=== PATIENT | male | born 1965 | race African-American/Black ===

== ENCOUNTER 2016-06-28 11:16 | Inpatient (IN) | payer OTHER ==
[~2016-06-28] VITALS: Ht 172.7 cm; Wt 85.5 kg
[2016-06-28] VITALS (11 sets, daily range): BP systolic 77–137; BP diastolic 38–87
[2016-06-28] MEDS ORDERED: DIAZEPAM 10 MG/2 ML DISP.SYRIN. ONE (11:28)
[2016-06-28] MEDS ORDERED: EPINEPHRINE 1 MG/ML VIAL. ONE (11:33)
[2016-06-28] MEDS ORDERED: PROPOFOL 50 ML IV ONE ×2 (11:58→12:24)
[2016-06-28] MEDS ORDERED: MIDAZOLAM HCL/PF 5 MG/5 ML VIAL IV ONE (12:00)
[2016-06-28] MEDS ORDERED: PROPOFOL 100 ML IV PRN (12:00)
[2016-06-28] MEDS ORDERED: IV NORMAL SALINE 1000ML BAG 1,000 ML IV SCH ×2 (12:02)
--- NOTE | 2016-06-28 12:06 | PHYS DOC ---
Adult General Chief Complaint Chief Complaint: NAUSEA/VOMITING/DIARRHA HPI HPI Patient is a 50 year old male who presents with complaint of severe difficulty breathing. Patient states that his symptoms started suddenly this morning and have rapidly progressed. The patient old EMS who arrived and found the patient having difficulty breathing with accompanied vomiting. On arrival, the patient is displaying severe respiratory distress. Patient states that he cannot breathe and feels that there is a blockage in his throat. Patient has history of hypertension and has been on long-term lisinopril therapy. Patient denies any fevers or pain currently. Review of Systems Review of Systems Constitutional: Denies fever or chills [] Eyes: Denies change in visual acuity, redness, or eye pain [] HENT: Throat swelling [] Respiratory: Difficulty breathing [] Cardiovascular: Denies chest pain or edema [] GI: Denies abdominal pain, nausea, vomiting, bloody stools or diarrhea [] : Denies dysuria or hematuria [] Musculoskeletal: Denies back pain or joint pain [] Integument: Denies rash or skin lesions [] Neurologic: Denies headache, focal weakness or sensory changes [] Endocrine: Denies polyuria or polydipsia [] Current Medications Current Medications Current Medications Medications (Trade) Dose Ordered Sig/Sima Start Time Stop Time Status Last Admin Dose Admin Diazepam (Valium) 10 mg STK-MED ONCE 06/28/16 11:28 06/28/16 11:29 DC Epinephrine HCl (Adrenalin) 1 mg STK-MED ONCE 06/28/16 11:33 06/28/16 11:34 DC Midazolam HCl 5 mg 5 mg 1X ONCE 06/28/16 12:00 06/28/16 12:01 DC 06/28/16 11:58 5 MG Propofol 100 ml @ 0 mls/hr CONT PRN 06/28/16 12:00 06/28/16 12:02 5 MLS/HR Sodium Chloride (Iv Sodium Chloride 0.9% 1000ml Bag) 1,000 ml @ 100 mls/hr Q10H 06/28/16 12:02 06/28/16 22:01 Allergies Allergies Allergies Coded Allergies Type Severity Reaction Last Updated Verified metoprolol Allergy Intermediate Unknown 06/28/16 Yes Physical Exam Physical Exam Constitutional: Alert, afebrile, appears in severe respiratory distress. [] HENT: Normocephalic, atraumatic, bilateral external ears normal, severe uvular edema, nose normal. [] Eyes: PERRLA, EOMI, conjunctiva normal, no discharge. [] Neck: Normal range of motion, no tenderness, supple, stridor present. [] Cardiovascular: Tachycardia, regular rhythm, no murmur [] Lungs & Thorax: Prolonged expiratory phase, no wheezes or rales present [] Abdomen: Bowel sounds normal, soft, no tenderness, no masses, no pulsatile masses. [] Skin: Warm, dry, no erythema, no rash. [] Back: No tenderness, no CVA tenderness. [] Extremities: No tenderness, no cyanosis, no clubbing, ROM intact, no edema. [] Neurologic: Alert and oriented X 3, normal motor function, normal sensory function, no focal deficits noted. [] Current Patient Data Vital Signs Vital Signs Date Time Temp Pulse Resp B/P Pulse Ox O2 Delivery O2 Flow Rate FiO2 06/28/16 12:06 132 169/96 100 Ventilator 06/28/16 11:45 19 Lab Values Laboratory Tests Test 06/28/16 11:39 06/28/16 12:02 White Blood Count 7.0x10^3/uL (4.0-11.0) Red Blood Count 4.62x10^6/uL (4.30-5.70) Hemoglobin 14.4g/dL (13.0-17.5) Hematocrit 43.8% (39.0-53.0) Mean Corpuscular Volume 95fL (79-100) Mean Corpuscular Hemoglobin 31pg (25-35) Mean Corpuscular Hemoglobin Concent 33g/dL (31-37) Red Cell Distribution Width 17.1% (11.5-14.5) H Platelet Count 118x10^3/uL (140-400) L Neutrophils (%) (Auto) 59% (31-73) Lymphocytes (%) (Auto) 35% (24-48) Monocytes (%) (Auto) 6% (0-9) Eosinophils (%) (Auto) 0% (0-3) Basophils (%) (Auto) 1% (0-3) Neutrophils # (Auto) 4.2x10^3uL (1.8-7.7) Lymphocytes # (Auto) 2.4x10^3/uL (1.0-4.8) Monocytes # (Auto) 0.4x10^3/uL (0.0-1.1) Eosinophils # (Auto) 0.0x10^3/uL (0.0-0.7) Basophils # (Auto) 0.0x10^3/uL (0.0-0.2) Sodium Level 137mmol/L (136-145) Potassium Level 3.9mmol/L (3.5-5.1) Chloride Level 97mmol/L (98-107) L Carbon Dioxide Level 22mmol/L (21-32) Anion Gap 18 (6-14) H Blood Urea Nitrogen 7mg/dL (8-26) L Creatinine 0.8mg/dL (0.7-1.3) Estimated GFR (Cockcroft-Gault) 102.3 BUN/Creatinine Ratio 9 (6-20) Glucose Level 127mg/dL (70-99) H Calcium Level 9.3mg/dL (8.5-10.1) Total Bilirubin 0.8mg/dL (0.2-1.0) Aspartate Amino Transferase (AST) 67U/L (15-37) H Alanine Aminotransferase (ALT) 29U/L (16-63) Alkaline Phosphatase 80U/L (46-116) Total Protein 8.8g/dL (6.4-8.2) H Albumin 4.1g/dL (3.4-5.0) Albumin/Globulin Ratio 0.9 (1.0-1.7) L Urine Collection Type U cath Urine Color Yellow Urine Clarity Cloudy Urine pH 6.0 Urine Specific [place] 1.020 Urine Protein >=300mg/dL (NEG-TRACE) Urine Glucose (UA) Negativemg/dL (NEG) Urine Ketones (Stick) Tracemg/dL (NEG) Urine Blood Small (NEG) Urine Nitrite Negative (NEG) Urine Bilirubin Negative (NEG) Urine Urobilinogen Dipstick 1.0mg/dL (0.2 mg/dL) Urine Leukocyte Esterase Negative (NEG) Urine RBC 1-2/HPF (0-2) Urine WBC 0/HPF (0-4) Urine Squamous Epithelial Cells None/LPF Urine Bacteria 0/HPF (0-FEW) Laboratory Tests 06/28/16 11:39 Laboratory Tests 06/28/16 11:39 EKG EKG Interpreted by me: Heart rate 123, sinus tachycardia, normal intervals, normal axis, no acute ST/T-wave abnormalities present [] Radiology/Procedures Radiology/Procedures [facility] [address] [place], [place] [id number] IMAGING REPORT Signed PATIENT: MAHESH CRAWFORD ACCOUNT: [id number] : 1965 LOCATION: [facility] ICU AGE: 50 SEX: M EXAM STATUS: ADM IN ORD. PHYSICIAN: PATI ALMAGUER MD REASON: status post intubation, ET tube placement PROCEDURE: PORTABLE CHEST 1V Single view chest History:status post intubation, ET tube placement An AP view of the chest is submitted. Comparison: None. Findings: Endotracheal tube tip terminates approximately 2.6 cm from brenda. Pericardial cardiac silhouette is within normal limits. There is no pneumothorax or pleural fluid. There is no peripheral lobar consolidation. There is relative increased opacity in the left infrahilar region. Impression: 1. There is adequate position of endotracheal tube. 2. There is relative increased left infrahilar opacity, no older exams to evaluate for change. Attention on follow-up is advised. DICTATED and SIGNED BY: GEORGE LOAIZA MD DATE: 06/28/161313 CC: PATI ALMAGUER MD; PUJA CARTER MD ~ [] Course & Med Decision Making Course & Med Decision Making Pertinent Labs and Imaging studies reviewed. (See chart for details) The patient appears in severe respiratory distress. I had high suspicion the patient is having acute angioedema. Patient was holding his oxygen saturations, however due to expected failure of protecting airway, I spoke with the patient emergently about need for intubation. The patient gave verbal consent for intubation. I consulted anesthesia and spoke with Dr. Azevedo. He spoke with one of the [employer]'s who came to bedside to assist with intubation. The patient was intubated as outlined in the procedure note. There was significant laryngeal edema present consistent with angioedema. Upon intubation, the patient 's vital signs improved. Patient was sedated with propofol and Versed. I spoke with Dr. Saunders who accepted care patient in hospital. Critical care time excluding procedures: 50 minutes [] Dragon Disclaimer Dragon Disclaimer This electronic medical record was generated, in whole or in part, using a voice recognition dictation system. Intubation Procedure Intub Indication: Expected respiratory failure Consent: Patient provided verbal consent. Medications Used: see nursing note Procedure: The patient was placed in the appropriate position. Intubation was performed under glidescope with placement of a 7.0 endotracheal tube. Secured at 21 cm at the lip. Initial confirmation of placement included bilateral breath sounds, tube fogging, adequate chest rise, adequate pulse oximetry reading. A chest x-ray to verify correct placement of the tube showed appropriate tube position. The patient tolerated the procedure well. Complications: none. Departure Departure Impression: Primary Impression: Acute respiratory failure Additional Impression: Angioedema Disposition: ADMITTED INPATIENT Admitting Physician: Nayan Saunders Condition: CRITICAL Referrals: PUJA CARTER MD (PCP) Problem Qualifiers Primary Impression: Acute respiratory failure Respiratory failure complication: unspecified whether with hypoxia or hypercapnia Qualified Code: J96.00 - Acute respiratory failure, unspecified whether with hypoxia or hypercapnia Additional Impression: Angioedema Encounter type: initial encounter Qualified Code: T78.3XXA - Angioneurotic edema, initial encounter PATI ALMAGUER MD Jun 28, 2016 12:06
[2016-06-28] MEDS ORDERED: MIDAZOLAM PREMIX 100 ML IV ONE (12:14)
[2016-06-28] MEDS ORDERED: MIDAZOLAM PREMIX 100 ML IV PRN (12:15)
[2016-06-28 12:45] LABS: BILIRUBIN,URINE NEGATIVE (NEG); GLUCOSE,URINE NEGATIVE (NEG); NITRITE,URINE NEGATIVE (NEG); PROTEIN,URINE >=300 mg/dL (NEG-TRACE)
[2016-06-28] MEDS ORDERED: ETOMIDATE 20 MG/10 ML VIAL. IV ONE (12:52)
[2016-06-28] MEDS ORDERED: SUCCINYLCHOLINE 200 MG/10 ML VIAL. ONE (12:52)
[2016-06-28 12:55] LABS: BACTERIA,URINE 0 /HPF (0-FEW); WBC,URINE 0 /HPF (0-4)
--- NOTE | 2016-06-28 13:18 | RAD ---
Single view chest History:status post intubation, ET tube placement An AP view of the chest is submitted. Comparison: None. Findings: Endotracheal tube tip terminates approximately 2.6 cm from brenda. Pericardial cardiac silhouette is within normal limits. There is no pneumothorax or pleural fluid. There is no peripheral lobar consolidation. There is relative increased opacity in the left infrahilar region. Impression: 1. There is adequate position of endotracheal tube. 2. There is relative increased left infrahilar opacity, no older exams to evaluate for change. Attention on follow-up is advised.
[2016-06-28 13:24] LABS: BASO % 1 % (0-3); EOS % 0 % (0-3); HEMATOCRIT 43.8 % (39.0-53.0); HEMOGLOBIN 14.4 g/dL (13.0-17.5); LYMPH # 2.4 x10^3/uL (1.0-4.8); LYMPH % 35 % (24-48); MEAN CORPUSCULAR HEMOGLOBIN 31 pg (25-35); MEAN CORPUSCULAR HGB CONC 33 g/dL (31-37); MEAN CORPUSCULAR VOLUME 95 fL (79-100); MONO % 6 % (0-9); NEUT % 59 % (31-73); PLATELET COUNT 118 x10^3/uL (140-400); RED BLOOD COUNT 4.62 x10^6/uL (4.30-5.70); RED CELL DISTRIBUTION WIDTH 17.1 % (11.5-14.5)
[2016-06-28 13:38] LABS: CALCIUM 9.3 mg/dL (8.5-10.1); CREATININE 0.8 mg/dL (0.7-1.3); GFR 102.3; POTASSIUM 3.9 mmol/L (3.5-5.1)
[2016-06-28 13:43] LABS: ALBUMIN 4.1 g/dL (3.4-5.0); ALBUMIN/GLOBULIN RATIO 0.9 (1.0-1.7); TOTAL BILIRUBIN 0.8 mg/dL (0.2-1.0); TOTAL PROTEIN 8.8 g/dL (6.4-8.2)
[2016-06-28] MEDS ORDERED: BISACODYL 10 MG SUPP.RECT PR PRN (13:45)
[2016-06-28] MEDS: FENTANYL STANDARD PCA 30 ML IV PRN ×2 (13:50→16:42)
[2016-06-28] MEDS: HALOPERIDOL LACT 5 MG/ML VIAL. IVP PRN ×2 (14:00→15:07)
[2016-06-28 14:30] LABS: HCO3 ABG 25 mmol/L (21-28); PCO2 ABG 41 mmHg (35-46); PO2 ABG 137 mmHg (75-108); SAT O2 ABG 98 % (92-99)
[2016-06-28 14:33] LABS: FIO2 ABG 50
[2016-06-28] MEDS: methylPREDNISolone SOD SUCC PF 125 MG/2 ML VIAL. IV SCH ×2 (15:08→21:14)
[2016-06-28] MEDS: MIDAZOLAM PREMIX 100 ML IV PRN ×3 (15:09→21:16)
[2016-06-28] MEDS: PROPOFOL 100 ML IV PRN ×2 (15:09→21:14)
--- NOTE | 2016-06-28 15:11 | ACF ---
Admission Forms Criteria RESPIRATORY FAILURE [facility] Clinical Indications for Admission to Inpatient Care (Place 'X' for any and all applicable criteria): Hospital admission is needed for appropriate care of the patient because of acute respiratory failure or insufficiency as indicated by ANY ONE of the following(1)(2)(3)(4)(5)(6)(7)(8): [X]I. Mechanical ventilation needed (acute invasive or noninvasive) [ ]II. Severe ventilation deficit as indicated by ANY ONE of the following (9) [ ]a) Respiratory acidosis (pH less than 7.32 and partial pressure of carbon dioxide greater than 40 mm Hg (5.3 kPa)) [ ]b) Partial pressure of carbon dioxide greater than 44 mm Hg (5.9 kPa ) (new) [ ]c) Airflow measurements less than 25% of predicted (eg, peak expiratory flow rate less than 100 L/minute) [ ]d) Forced vital capacity less than 15 mL/kg of ideal body weight, or 50% decrease in vital capacity from baseline [ ]III. Noncardiac pulmonary edema not resolving with rapid emergency treatment (8) [ ]IV. Severe respiratory distress as indicated by ANY ONE of the following: [ ]a) Severe tachypnea (respiratory rate greater than 30, greater than 45 for 6-month-old, greater than 60 for ) [ ]b) Severe hypoxemia (partial pressure of oxygen less than 50 mm Hg ( 6.7 kPa) on greater than 50% oxygen or partial pressure of oxygen to FIO2 ratio less than 200) [ ]c) Mental status deterioration from respiratory disease [ ]V. Airway obstruction or inadequate protection [A](10)(11) The original [employer] content created by [employer] has been revised. The portions of the content which have been revised are identified through the use of italic text or in bold, and [employer] has neither reviewed nor approved the modified material. All other unmodified content is copyright [employer]. Please see references footnoted in the original [employer] edition 2016 Admission Criteria Met?: Yes REJI BRADY Jun 28, 2016 15:11
--- NOTE | 2016-06-28 16:27 | PDOC1 ---
History and Physical Past Medical History Cardiovascular: HTN Current Problem List Problem List Problems Medical Problems: (1) Acute respiratory failure Status: Acute (2) Angioedema Status: Acute Current Medications Current Medications Current Medications Medications (Trade) Dose Ordered Sig/Sima Start Time Stop Time Status Last Admin Dose Admin Artificial Tears (Artificial Tears) 1 drop PRN Q1HR PRN 06/28/16 13:45 Bisacodyl (Dulcolax Supp) 10 mg PRN DAILY PRN 06/28/16 13:45 Chlorhexidine Gluconate (Peridex) 15 ml BID 06/28/16 21:00 Diazepam (Valium) 10 mg STK-MED ONCE 06/28/16 11:28 06/28/16 11:29 DC Docusate Sodium (Colace Solution) 100 mg BID 06/28/16 21:00 Epinephrine HCl (Adrenalin) 1 mg STK-MED ONCE 06/28/16 11:33 06/28/16 11:34 DC Etomidate (Amidate) 20 mg STK-MED ONCE 06/28/16 12:52 06/28/16 12:53 DC Famotidine 20 mg 20 mg BID 06/28/16 21:00 Fentanyl Citrate 30 ml @ 0 mls/hr CONT PRN 06/28/16 13:45 06/28/16 13:50 4.95 MLS/HR Haloperidol Lactate (Haldol) 5 mg PRN Q15MIN PRN 06/28/16 13:45 06/28/16 14:00 5 MG Methylprednisolone Sodium Succinate (Solu-Medrol 125mg Vial) 125 mg Q8HRS 06/28/16 14:00 06/28/16 15:08 125 MG Midazolam HCl (Versed 100mg/ 100ml Premix) 100 ml @ 0 mls/hr CONT PRN 06/28/16 13:45 06/28/16 15:09 20 MLS/HR Midazolam HCl 5 mg 5 mg 1X ONCE 06/28/16 12:00 06/28/16 12:01 DC 06/28/16 11:58 5 MG Propofol (Diprivan) 100 ml @ 0 mls/hr CONT PRN 06/28/16 13:45 06/28/16 15:09 27 MLS/HR Sodium Chloride (Iv Sodium Chloride 0.9% 1000ml Bag) 1,000 ml @ 100 mls/hr Q10H 06/28/16 12:02 06/28/16 22:01 Succinylcholine Chloride 200 mg 200 mg STK-MED ONCE 06/28/16 12:52 06/28/16 12:53 DC Allergies Allergies Allergies Coded Allergies Type Severity Reaction Last Updated Verified metoprolol Allergy Intermediate Unknown 06/28/16 Yes ROS Review of System intubated. Physical Exam Physical Exam GEN.: sedated and intubated. HEENT: Head is normocephalic, atraumatic NECK: Supple. no jvd LUNGS: Clear to auscultation. normal airflow HEART: RRR, S1, S2 present. Peripheral pulses intact ABDOMEN: Soft, nontender. Positive bowel sounds. EXTREMITIES: Without any cyanosis. NEUROLOGIC: sedated. PSYCHIATRIC: sedated. SKIN: No visible ulcerations Vitals Vitals Vital Signs Date Time Temp Pulse Resp B/P Pulse Ox O2 Delivery O2 Flow Rate FiO2 06/28/16 15:30 100 Ventilator 06/28/16 13:50 20 06/28/16 13:06 116 108/64 Labs Labs Laboratory Tests Test 06/28/16 11:39 06/28/16 12:02 06/28/16 13:53 White Blood Count 7.0x10^3/uL (4.0-11.0) Red Blood Count 4.62x10^6/uL (4.30-5.70) Hemoglobin 14.4g/dL (13.0-17.5) Hematocrit 43.8% (39.0-53.0) Mean Corpuscular Volume 95fL (79-100) Mean Corpuscular Hemoglobin 31pg (25-35) Mean Corpuscular Hemoglobin Concent 33g/dL (31-37) Red Cell Distribution Width 17.1% (11.5-14.5) Platelet Count 118x10^3/uL (140-400) Neutrophils (%) (Auto) 59% (31-73) Lymphocytes (%) (Auto) 35% (24-48) Monocytes (%) (Auto) 6% (0-9) Eosinophils (%) (Auto) 0% (0-3) Basophils (%) (Auto) 1% (0-3) Neutrophils # (Auto) 4.2x10^3uL (1.8-7.7) Lymphocytes # (Auto) 2.4x10^3/uL (1.0-4.8) Monocytes # (Auto) 0.4x10^3/uL (0.0-1.1) Eosinophils # (Auto) 0.0x10^3/uL (0.0-0.7) Basophils # (Auto) 0.0x10^3/uL (0.0-0.2) Sodium Level 137mmol/L (136-145) Potassium Level 3.9mmol/L (3.5-5.1) Chloride Level 97mmol/L (98-107) Carbon Dioxide Level 22mmol/L (21-32) Anion Gap 18 (6-14) Blood Urea Nitrogen 7mg/dL (8-26) Creatinine 0.8mg/dL (0.7-1.3) Estimated GFR (Cockcroft-Gault) 102.3 BUN/Creatinine Ratio 9 (6-20) Glucose Level 127mg/dL (70-99) Calcium Level 9.3mg/dL (8.5-10.1) Total Bilirubin 0.8mg/dL (0.2-1.0) Aspartate Amino Transf (AST/SGOT) 67U/L (15-37) Alanine Aminotransferase (ALT/SGPT) 29U/L (16-63) Alkaline Phosphatase 80U/L (46-116) Total Protein 8.8g/dL (6.4-8.2) Albumin 4.1g/dL (3.4-5.0) Albumin/Globulin Ratio 0.9 (1.0-1.7) Urine Collection Type U cath Urine Color Yellow Urine Clarity Cloudy Urine pH 6.0 Urine Specific [place] 1.020 Urine Protein >=300mg/dL (NEG-TRACE) Urine Glucose (UA) Negativemg/dL (NEG) Urine Ketones (Stick) Tracemg/dL (NEG) Urine Blood Small (NEG) Urine Nitrite Negative (NEG) Urine Bilirubin Negative (NEG) Urine Urobilinogen Dipstick 1.0mg/dL (0.2 mg/dL) Urine Leukocyte Esterase Negative (NEG) Urine RBC 1-2/HPF (0-2) Urine WBC 0/HPF (0-4) Urine Squamous Epithelial Cells None/LPF Urine Bacteria 0/HPF (0-FEW) O2 Saturation 98% (92-99) Arterial Blood pH 7.40 (7.35-7.45) Arterial Blood pCO2 at Patient Temp 41mmHg (35-46) Arterial Blood pO2 at Patient Temp 137mmHg (75-108) Arterial Blood HCO3 25mmol/L (21-28) Arterial Blood Base Excess 0mmol/L (-3-3) FiO2 50 Laboratory Tests Test 06/28/16 11:39 06/28/16 12:02 06/28/16 13:53 White Blood Count 7.0x10^3/uL (4.0-11.0) Red Blood Count 4.62x10^6/uL (4.30-5.70) Hemoglobin 14.4g/dL (13.0-17.5) Hematocrit 43.8% (39.0-53.0) Mean Corpuscular Volume 95fL (79-100) Mean Corpuscular Hemoglobin 31pg (25-35) Mean Corpuscular Hemoglobin Concent 33g/dL (31-37) Red Cell Distribution Width 17.1% (11.5-14.5) Platelet Count 118x10^3/uL (140-400) Neutrophils (%) (Auto) 59% (31-73) Lymphocytes (%) (Auto) 35% (24-48) Monocytes (%) (Auto) 6% (0-9) Eosinophils (%) (Auto) 0% (0-3) Basophils (%) (Auto) 1% (0-3) Neutrophils # (Auto) 4.2x10^3uL (1.8-7.7) Lymphocytes # (Auto) 2.4x10^3/uL (1.0-4.8) Monocytes # (Auto) 0.4x10^3/uL (0.0-1.1) Eosinophils # (Auto) 0.0x10^3/uL (0.0-0.7) Basophils # (Auto) 0.0x10^3/uL (0.0-0.2) Sodium Level 137mmol/L (136-145) Potassium Level 3.9mmol/L (3.5-5.1) Chloride Level 97mmol/L (98-107) Carbon Dioxide Level 22mmol/L (21-32) Anion Gap 18 (6-14) Blood Urea Nitrogen 7mg/dL (8-26) Creatinine 0.8mg/dL (0.7-1.3) Estimated GFR (Cockcroft-Gault) 102.3 BUN/Creatinine Ratio 9 (6-20) Glucose Level 127mg/dL (70-99) Calcium Level 9.3mg/dL (8.5-10.1) Total Bilirubin 0.8mg/dL (0.2-1.0) Aspartate Amino Transf (AST/SGOT) 67U/L (15-37) Alanine Aminotransferase (ALT/SGPT) 29U/L (16-63) Alkaline Phosphatase 80U/L (46-116) Total Protein 8.8g/dL (6.4-8.2) Albumin 4.1g/dL (3.4-5.0) Albumin/Globulin Ratio 0.9 (1.0-1.7) Urine Collection Type U cath Urine Color Yellow Urine Clarity Cloudy Urine pH 6.0 Urine Specific [place] 1.020 Urine Protein >=300mg/dL (NEG-TRACE) Urine Glucose (UA) Negativemg/dL (NEG) Urine Ketones (Stick) Tracemg/dL (NEG) Urine Blood Small (NEG) Urine Nitrite Negative (NEG) Urine Bilirubin Negative (NEG) Urine Urobilinogen Dipstick 1.0mg/dL (0.2 mg/dL) Urine Leukocyte Esterase Negative (NEG) Urine RBC 1-2/HPF (0-2) Urine WBC 0/HPF (0-4) Urine Squamous Epithelial Cells None/LPF Urine Bacteria 0/HPF (0-FEW) O2 Saturation 98% (92-99) Arterial Blood pH 7.40 (7.35-7.45) Arterial Blood pCO2 at Patient Temp 41mmHg (35-46) Arterial Blood pO2 at Patient Temp 137mmHg (75-108) Arterial Blood HCO3 25mmol/L (21-28) Arterial Blood Base Excess 0mmol/L (-3-3) FiO2 50 VTE Prophylaxis Ordered VTE Prophylaxis Devices: Yes VTE Pharmacological Prophylaxi: Yes MARGARET ANDERSON MD Jun 28, 2016 16:27
[2016-06-28] MEDS ORDERED: ALBUTEROL SULFATE 2.5 MG/3 ML NEBU. NEB PRN (16:45)
[2016-06-28] MEDS ORDERED: ACETAMINOPHEN 325 MG TABLET. PO PRN (16:45)
[2016-06-28] MEDS ORDERED: hydrALAZINE 20 MG/ML VIAL. IVP PRN (16:45)
[2016-06-28] MEDS ORDERED: ONDANSETRON PF 4 MG/2 ML VIAL. IV PRN (16:45)
[2016-06-28] MEDS ORDERED: TRAZ50TA15 PO (20:16)
[2016-06-28] MEDS ORDERED: LISI10TA2 PO (20:16)
[2016-06-28] MEDS: DOCUSATE 100 MG/10 ML SOLUTION. NG SCH (21:00)
[2016-06-28] MEDS: AA 3%/ELECTROLYTE-TPN SOLN/GLY 1,000 ML IV SCH (21:14)
[2016-06-28] MEDS: FAMOTIDINE 20 MG/2 ML VIAL IVP SCH (21:14)
[2016-06-28] MEDS: CHLORHEXIDINE 0.12% 15 ML MOUTHWASH. MM SCH (21:14)
--- NOTE | 2016-06-28 23:04 | HP ---
ADMIT DATE: 06/28/2016 CHIEF COMPLAINT: Respiratory distress. HISTORY OF PRESENT ILLNESS: A 50-year-old male patient presented to the ER with complaints of sudden onset of shortness of breath. Most of the history is obtained from the ER notes. Reportedly, the patient had shortness of breath started this morning and rapidly progressed and he called EMS. At the time of presentation to the ER, he was in severe respiratory distress and he could not breathe and he was requiring emergency intubation to protect his airway. As per the ER report, patient has been on lisinopril for a long time and never had any complications, however, this time, he apparently presented with angioedema. PAST MEDICAL HISTORY: Hypertension. PAST SURGICAL HISTORY: Not able to obtain. FAMILY HISTORY: Not able to obtain. REVIEW OF SYSTEMS: Not able to obtain. ALLERGIES: METOPROLOL, NOW LISINOPRIL. PHYSICAL EXAMINATION: Please see my electronic H and P. LABORATORY DATA: WBC 7000, hemoglobin is 14.4, MCV is 95, MCHC is 33, platelets 118, lymphocytes 35. Chemistry: Sodium is 137, potassium 3.9, chloride is 97, carbon dioxide is 22, anion gap 18, BUN is 7, GFR 102, glucose is 127. Blood gas, pH is 7.4, pO2 of 98, pCO2 of 41, pO2 137. IMAGING STUDIES: Chest x-ray: No acute process seen. ASSESSMENT AND PLAN: 1. Acute hypoxic respiratory failure, elective intubation to protect airway. 2. Angioedema, likely due to lisinopril. 3. Hypertension. PLAN: 1. The patient has been intubated and sedated currently in the Critical Care Unit. Continue IV hydration at 75 mL/hour and PPN 80 mL/hour. 2. Currently sedated with Versed, Haldol and propofol, however, patient showing signs of agitation. 3. P.r.n. Haldol for agitation. 4. Solu-Medrol 125 mg t.i.d. 5. CBC, BMP in a.m. 6. No family member is immediately available at the time of examination. Continue supportive care, vent settings has been monitored. Currently he is in stable condition. 7. I will order a urine drug screen. PROGNOSIS: Guarded. Patient's condition is critical in nature. MARGARET ANDERSON MD DR: ANGEL/jen JOB#: [id number] / [id number] SHELRY
[2016-06-29] VITALS (22 sets, daily range): BP systolic 100–140; BP diastolic 59–88
[2016-06-29] MEDS: PROPOFOL 100 ML IV PRN ×7 (00:05→22:37)
[2016-06-29] MEDS: FENTANYL STANDARD PCA 30 ML IV PRN ×5 (00:11→23:40)
[2016-06-29] MEDS: MIDAZOLAM PREMIX 100 ML IV PRN (02:59)
[2016-06-29] MEDS: methylPREDNISolone SOD SUCC PF 125 MG/2 ML VIAL. IV SCH ×3 (05:53→21:40)
[2016-06-29] MEDS: AA 3%/ELECTROLYTE-TPN SOLN/GLY 1,000 ML IV SCH ×3 (05:54→23:41)
[2016-06-29 06:15] LABS: BASO % 0 % (0-3); EOS % 0 % (0-3); HEMATOCRIT 39.1 % (39.0-53.0); LYMPH # 0.6 x10^3/uL (1.0-4.8); LYMPH % 13 % (24-48); MEAN CORPUSCULAR HEMOGLOBIN 31 pg (25-35); MEAN CORPUSCULAR HGB CONC 33 g/dL (31-37); MEAN CORPUSCULAR VOLUME 93 fL (79-100); MONO % 2 % (0-9); NEUT % 85 % (31-73); PLATELET COUNT 87 x10^3/uL (140-400); RED BLOOD COUNT 4.19 x10^6/uL (4.30-5.70); RED CELL DISTRIBUTION WIDTH 16.9 % (11.5-14.5); WHITE BLOOD COUNT 4.6 x10^3/uL (4.0-11.0)
[2016-06-29 06:26] LABS: CALCIUM 8.6 mg/dL (8.5-10.1); CREATININE 0.8 mg/dL (0.7-1.3); GFR 102.3; POTASSIUM 3.9 mmol/L (3.5-5.1)
--- NOTE | 2016-06-29 08:06 | EKG ---
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
[2016-06-29] MEDS: FAMOTIDINE 20 MG/2 ML VIAL IVP SCH ×2 (08:38→21:39)
[2016-06-29] MEDS: DOCUSATE 100 MG/10 ML SOLUTION. NG SCH (08:39)
[2016-06-29] MEDS: CHLORHEXIDINE 0.12% 15 ML MOUTHWASH. MM SCH ×2 (08:39→21:39)
[2016-06-29] MEDS: POLYVINYL ALCOHOL 1.4% OPHTH SOLUTION 15ML BOTTLE. OU PRN ×2 (08:39→13:37)
[2016-06-29 10:40] LABS: HCO3 ABG 25 mmol/L (21-28); PCO2 ABG 40 mmHg (35-46); PH ABG 7.42 (7.35-7.45); PO2 ABG 99 mmHg (75-108); SAT O2 ABG 97 % (92-99)
[2016-06-29 10:42] LABS: FIO2 ABG 40
[2016-06-29] MEDS ORDERED: hydrALAZINE 20 MG/ML VIAL. IVP PRN (12:30)
--- NOTE | 2016-06-29 12:32 | PDOC ---
PROGRESS NOTES Chief Complaint Chief Complaint sob 1. Acute hypoxic respiratory failure, elective intubation to protect airway. 2. Angioedema, likely due to lisinopril. 3. Hypertension. 4. alcoholism plan: keep intubated, sedated for today given still very angioedema at throat ICU care sedated PULM CONsult cont solumedrol 125mg iv tid CXR daily PPN dvt, gi ppx try to wean tmr History of Present Illness History of Present Illness agitated overnight need sedation as per nurse, throat still very swollen ,cannot insert OGT Vitals Vitals Vital Signs Date Time Temp Pulse Resp B/P Pulse Ox O2 Delivery O2 Flow Rate FiO2 06/29/16 12:00 Mechanical Ventilator 06/29/16 11:53 97.4 67 14 128/81 97 97.4 Physical Exam Physical Exam intubated, sedated Heart: Regular rate, Normal S1, Normal S2 Lungs: Clear Abdomen: Normal bowel sounds, Soft Extremities: No clubbing, No cyanosis Labs LABS Laboratory Tests Test 06/28/16 13:53 06/29/16 05:30 06/29/16 05:34 06/29/16 10:30 O2 Saturation 98% (92-99) 97% (92-99) Arterial Blood pH 7.40 (7.35-7.45) 7.42 (7.35-7.45) Arterial Blood pCO2 at Patient Temp 41mmHg (35-46) 40mmHg (35-46) Arterial Blood pO2 at Patient Temp 137mmHg (75-108) 99mmHg (75-108) Arterial Blood HCO3 25mmol/L (21-28) 25mmol/L (21-28) Arterial Blood Base Excess 0mmol/L (-3-3) 0mmol/L (-3-3) FiO2 50 40 White Blood Count 4.6x10^3/uL (4.0-11.0) Red Blood Count 4.19x10^6/uL (4.30-5.70) Hemoglobin 13.0g/dL (13.0-17.5) Hematocrit 39.1% (39.0-53.0) Mean Corpuscular Volume 93fL (79-100) Mean Corpuscular Hemoglobin 31pg (25-35) Mean Corpuscular Hemoglobin Concent 33g/dL (31-37) Red Cell Distribution Width 16.9% (11.5-14.5) Platelet Count 87x10^3/uL (140-400) Neutrophils (%) (Auto) 85% (31-73) Lymphocytes (%) (Auto) 13% (24-48) Monocytes (%) (Auto) 2% (0-9) Eosinophils (%) (Auto) 0% (0-3) Basophils (%) (Auto) 0% (0-3) Neutrophils # (Auto) 3.9x10^3uL (1.8-7.7) Lymphocytes # (Auto) 0.6x10^3/uL (1.0-4.8) Monocytes # (Auto) 0.1x10^3/uL (0.0-1.1) Eosinophils # (Auto) 0.0x10^3/uL (0.0-0.7) Basophils # (Auto) 0.0x10^3/uL (0.0-0.2) Sodium Level 137mmol/L (136-145) Potassium Level 3.9mmol/L (3.5-5.1) Chloride Level 100mmol/L (98-107) Carbon Dioxide Level 24mmol/L (21-32) Anion Gap 13 (6-14) Blood Urea Nitrogen 10mg/dL (8-26) Creatinine 0.8mg/dL (0.7-1.3) Estimated GFR (Cockcroft-Gault) 102.3 Glucose Level 166mg/dL (70-99) Calcium Level 8.6mg/dL (8.5-10.1) Review of Systems Review of Systems no fever, chills, Assessment and Plan Assessmemt and Plan Problems Medical Problems: (1) Acute respiratory failure Status: Acute (2) Angioedema Status: Acute Problems: Comment Review of Relevant I have reviewed the following items kenji (where applicable) has been applied. Labs Laboratory Tests Test 06/28/16 11:39 06/28/16 12:02 06/28/16 13:53 06/29/16 05:30 White Blood Count 7.0x10^3/uL (4.0-11.0) 4.6x10^3/uL (4.0-11.0) Red Blood Count 4.62x10^6/uL (4.30-5.70) 4.19x10^6/uL (4.30-5.70) Hemoglobin 14.4g/dL (13.0-17.5) 13.0g/dL (13.0-17.5) Hematocrit 43.8% (39.0-53.0) 39.1% (39.0-53.0) Mean Corpuscular Volume 95fL (79-100) 93fL (79-100) Mean Corpuscular Hemoglobin 31pg (25-35) 31pg (25-35) Mean Corpuscular Hemoglobin Concent 33g/dL (31-37) 33g/dL (31-37) Red Cell Distribution Width 17.1% (11.5-14.5) 16.9% (11.5-14.5) Platelet Count 118x10^3/uL (140-400) 87x10^3/uL (140-400) Neutrophils (%) (Auto) 59% (31-73) 85% (31-73) Lymphocytes (%) (Auto) 35% (24-48) 13% (24-48) Monocytes (%) (Auto) 6% (0-9) 2% (0-9) Eosinophils (%) (Auto) 0% (0-3) 0% (0-3) Basophils (%) (Auto) 1% (0-3) 0% (0-3) Neutrophils # (Auto) 4.2x10^3uL (1.8-7.7) 3.9x10^3uL (1.8-7.7) Lymphocytes # (Auto) 2.4x10^3/uL (1.0-4.8) 0.6x10^3/uL (1.0-4.8) Monocytes # (Auto) 0.4x10^3/uL (0.0-1.1) 0.1x10^3/uL (0.0-1.1) Eosinophils # (Auto) 0.0x10^3/uL (0.0-0.7) 0.0x10^3/uL (0.0-0.7) Basophils # (Auto) 0.0x10^3/uL (0.0-0.2) 0.0x10^3/uL (0.0-0.2) Sodium Level 137mmol/L (136-145) Potassium Level 3.9mmol/L (3.5-5.1) Chloride Level 97mmol/L (98-107) Carbon Dioxide Level 22mmol/L (21-32) Anion Gap 18 (6-14) Blood Urea Nitrogen 7mg/dL (8-26) Creatinine 0.8mg/dL (0.7-1.3) Estimated GFR (Cockcroft-Gault) 102.3 BUN/Creatinine Ratio 9 (6-20) Glucose Level 127mg/dL (70-99) Calcium Level 9.3mg/dL (8.5-10.1) Total Bilirubin 0.8mg/dL (0.2-1.0) Aspartate Amino Transf (AST/SGOT) 67U/L (15-37) Alanine Aminotransferase (ALT/SGPT) 29U/L (16-63) Alkaline Phosphatase 80U/L (46-116) Total Protein 8.8g/dL (6.4-8.2) Albumin 4.1g/dL (3.4-5.0) Albumin/Globulin Ratio 0.9 (1.0-1.7) Urine Collection Type U cath Urine Color Yellow Urine Clarity Cloudy Urine pH 6.0 Urine Specific [place] 1.020 Urine Protein >=300mg/dL (NEG-TRACE) Urine Glucose (UA) Negativemg/dL (NEG) Urine Ketones (Stick) Tracemg/dL (NEG) Urine Blood Small (NEG) Urine Nitrite Negative (NEG) Urine Bilirubin Negative (NEG) Urine Urobilinogen Dipstick 1.0mg/dL (0.2 mg/dL) Urine Leukocyte Esterase Negative (NEG) Urine RBC 1-2/HPF (0-2) Urine WBC 0/HPF (0-4) Urine Squamous Epithelial Cells None/LPF Urine Bacteria 0/HPF (0-FEW) O2 Saturation 98% (92-99) Arterial Blood pH 7.40 (7.35-7.45) Arterial Blood pCO2 at Patient Temp 41mmHg (35-46) Arterial Blood pO2 at Patient Temp 137mmHg (75-108) Arterial Blood HCO3 25mmol/L (21-28) Arterial Blood Base Excess 0mmol/L (-3-3) FiO2 50 Test 06/29/16 05:34 06/29/16 10:30 Sodium Level 137mmol/L (136-145) Potassium Level 3.9mmol/L (3.5-5.1) Chloride Level 100mmol/L (98-107) Carbon Dioxide Level 24mmol/L (21-32) Anion Gap 13 (6-14) Blood Urea Nitrogen 10mg/dL (8-26) Creatinine 0.8mg/dL (0.7-1.3) Estimated GFR (Cockcroft-Gault) 102.3 Glucose Level 166mg/dL (70-99) Calcium Level 8.6mg/dL (8.5-10.1) O2 Saturation 97% (92-99) Arterial Blood pH 7.42 (7.35-7.45) Arterial Blood pCO2 at Patient Temp 40mmHg (35-46) Arterial Blood pO2 at Patient Temp 99mmHg (75-108) Arterial Blood HCO3 25mmol/L (21-28) Arterial Blood Base Excess 0mmol/L (-3-3) FiO2 40 Laboratory Tests Test 06/28/16 13:53 06/29/16 05:30 06/29/16 05:34 06/29/16 10:30 O2 Saturation 98% (92-99) 97% (92-99) Arterial Blood pH 7.40 (7.35-7.45) 7.42 (7.35-7.45) Arterial Blood pCO2 at Patient Temp 41mmHg (35-46) 40mmHg (35-46) Arterial Blood pO2 at Patient Temp 137mmHg (75-108) 99mmHg (75-108) Arterial Blood HCO3 25mmol/L (21-28) 25mmol/L (21-28) Arterial Blood Base Excess 0mmol/L (-3-3) 0mmol/L (-3-3) FiO2 50 40 White Blood Count 4.6x10^3/uL (4.0-11.0) Red Blood Count 4.19x10^6/uL (4.30-5.70) Hemoglobin 13.0g/dL (13.0-17.5) Hematocrit 39.1% (39.0-53.0) Mean Corpuscular Volume 93fL (79-100) Mean Corpuscular Hemoglobin 31pg (25-35) Mean Corpuscular Hemoglobin Concent 33g/dL (31-37) Red Cell Distribution Width 16.9% (11.5-14.5) Platelet Count 87x10^3/uL (140-400) Neutrophils (%) (Auto) 85% (31-73) Lymphocytes (%) (Auto) 13% (24-48) Monocytes (%) (Auto) 2% (0-9) Eosinophils (%) (Auto) 0% (0-3) Basophils (%) (Auto) 0% (0-3) Neutrophils # (Auto) 3.9x10^3uL (1.8-7.7) Lymphocytes # (Auto) 0.6x10^3/uL (1.0-4.8) Monocytes # (Auto) 0.1x10^3/uL (0.0-1.1) Eosinophils # (Auto) 0.0x10^3/uL (0.0-0.7) Basophils # (Auto) 0.0x10^3/uL (0.0-0.2) Sodium Level 137mmol/L (136-145) Potassium Level 3.9mmol/L (3.5-5.1) Chloride Level 100mmol/L (98-107) Carbon Dioxide Level 24mmol/L (21-32) Anion Gap 13 (6-14) Blood Urea Nitrogen 10mg/dL (8-26) Creatinine 0.8mg/dL (0.7-1.3) Estimated GFR (Cockcroft-Gault) 102.3 Glucose Level 166mg/dL (70-99) Calcium Level 8.6mg/dL (8.5-10.1) Medications Current Medications Diazepam (Valium) 10 mg STK-MED ONCE .ROUTE ; Start 06/28/16 at 11:28; Stop 05/02 at 11:29; Status DC Epinephrine HCl (Adrenalin) 1 mg STK-MED ONCE .ROUTE ; Start 06/28/16 at 11:33; Stop 06/28/16 at 11:34; Status DC Midazolam HCl 5 mg 5 mg 1X ONCE IV Last administered on 06/28/16t 11:58; Start 06/28/16 at 12:00; Stop 06/28/16 at 12:01; Status DC Propofol 50 ml @ As Directed STK-MED ONCE IV ; Start 06/28/16 at 11:58; Stop 05/02 at 11:59; Status DC Propofol 100 ml @ 0 mls/hr CONT PRN IV SEE I/O RECORD Last administered on 06/28 12:02; Start 06/28/16 at 12:00; Stop 06/28/16 at 16:39; Status DC Sodium Chloride 1,000 ml @ 1,000 mls/hr Q1H IV Last administered on 06/28/16 12:24; Start 06/28/16 at 12:02; Stop 06/28/16 at 13:01; Status DC Sodium Chloride 1,000 ml @ 100 mls/hr Q10H IV ; Start 06/28/16 at 12:02; Stop 06/28/16 at 22:01; Status DC Midazolam HCl 100 ml @ As Directed STK-MED ONCE IV ; Start 06/28/16 at 12:14; Stop 06/28/16 at 12:15; Status DC Midazolam HCl 100 ml @ 0 mls/hr CONT PRN IV SEE I/O RECORD Last administered on 06/28/16 12:25; Start 06/28/16 at 12:15; Stop 06/28/16 at 16:40; Status DC Propofol (Diprivan) 50 ml @ As Directed STK-MED ONCE IV ; Start 06/28/16 at 12: 24; Stop 06/28/16 at 12:25; Status DC Etomidate (Amidate) 20 mg STK-MED ONCE IV ; Start 06/28/16 at 12:52; Stop at 12:53; Status DC Succinylcholine Chloride 200 mg 200 mg STK-MED ONCE .ROUTE ; Start 06/28/16 at 12:52; Stop 06/28/16 at 12:53; Status DC Fentanyl Citrate 30 ml @ 0 mls/hr CONT PRN IV PROTOCOL Last administered on 11:19; Start 06/28/16 at 13:45 Propofol (Diprivan) 100 ml @ 0 mls/hr CONT PRN IV PER PROTOCOL Last administered on 06/29/16 10:18; Start 06/28/16 at 13:45 Chlorhexidine Gluconate (Peridex) 15 ml BID MM Last administered on 06/29/16 08:39; Start 06/28/16 at 21:00 Artificial Tears (Artificial Tears) 1 drop PRN Q1HR PRN OU DRY EYE Last administered on 06/29/16 08:39; Start 06/28/16 at 13:45 Famotidine 20 mg 20 mg BID IVP Last administered on 06/29/16 08:38; Start 05/02 at 21:00 Midazolam HCl (Versed 100mg/ 100ml Premix) 100 ml @ 0 mls/hr CONT PRN IV PER PROTOCOL Last administered on 06/29/16 02:59; Start 06/28/16 at 13:45 Haloperidol Lactate (Haldol) 5 mg PRN Q15MIN PRN IVP AGITATION, DELIRIUM Last administered on 06/28/16 14:00; Start 06/28/16 at 13:45 Docusate Sodium (Colace Solution) 100 mg BID NG ; Start 06/28/16 at 21:00 Bisacodyl (Dulcolax Supp) 10 mg PRN DAILY PRN [place] CONSTIPATION; Start 06/28/16 at 13:45 Methylprednisolone Sodium Succinate 125 mg 125 mg Q8HRS IV Last administered on 06/29/16 05:53; Start 06/28/16 at 14:00 Amino Acids/ Glycerin/ Electrolytes (Procalamine) 1,000 ml @ 80 mls/hr [id number] IV Last administered on 06/29/16 10:18; Start 06/28/16 at 17:00 Acetaminophen (Tylenol) 325 mg PRN Q6HRS PRN PO MILD PAIN / TEMP; Start at 16:45 Hydralazine HCl (Apresoline) 10 mg PRN Q4HRS PRN IVP ELEVATED BP, SEE COMMENTS ; Start 06/28/16 at 16:45 Ondansetron HCl (Zofran) 4 mg PRN Q8HRS PRN IV NAUSEA/VOMITING; Start 06/28/16 at 16:45 Albuterol Sulfate (Ventolin Neb Soln) 2.5 mg PRN Q4HRS PRN NEB SHORTNESS OF BREATH; Start 06/28/16 at 16:45 Active Scripts Active Reported Lisinopril 10 Mg Tablet 10 Mg PO DAILY Trazodone Hcl 50 Mg Tablet 1 Tab PO QHS Vitals/I & O Vital Sign - Last 24 Hours 06/28/16 06/28/16 06/28/16 06/28/16 12:36 12:46 12:56 13:06 Pulse 118 116 118 116 B/P 97/56 90/53 112/68 108/64 Pulse Ox 100 100 100 100 O2 Delivery Ventilator Ventilator Ventilator Ventilator 06/28/16 06/28/16 06/28/16 06/28/16 13:30 13:50 14:00 14:00 Temp 98.1 98.1 Pulse 114 114 Resp 20 20 16 B/P 133/74 103/55 Pulse Ox 100 100 100 O2 Delivery Ventilator Ventilator Ventilator Mechanical Ventilator 06/28/16 06/28/16 06/28/16 06/28/16 15:00 15:30 16:00 16:42 Pulse 120 100 Resp 14 14 20 B/P 129/78 77/38 Pulse Ox 100 100 100 100 O2 Delivery Ventilator Ventilator Ventilator Ventilator 06/28/16 06/28/16 06/28/16 06/28/16 17:00 17:03 18:00 19:00 Pulse 100 90 80 Resp 14 14 14 B/P 128/78 118/73 112/72 Pulse Ox 100 100 100 100 O2 Delivery Ventilator Ventilator Ventilator Ventilator 06/28/16 06/28/16 06/28/16 06/28/16 19:28 20:00 20:00 21:00 Temp 97.9 97.9 Pulse 78 76 Resp 18 14 B/P 115/75 119/75 Pulse Ox 100 100 100 O2 Delivery Ventilator Mechanical Ventilator Ventilator Ventilator 06/28/16 06/28/16 06/28/16 06/29/16 22:00 23:00 23:39 00:00 Pulse 75 73 Resp 14 14 B/P 131/87 137/83 Pulse Ox 100 100 100 O2 Delivery Ventilator Ventilator Ventilator Mechanical Ventilator 06/29/16 06/29/16 06/29/16 06/29/16 00:00 00:11 01:00 02:00 Temp 97.9 97.9 Pulse 71 72 66 Resp 14 14 14 14 B/P 136/86 127/79 134/81 Pulse Ox 100 100 99 99 O2 Delivery Ventilator Ventilator Ventilator Ventilator 06/29/16 06/29/16 06/29/16 06/29/16 03:00 03:42 04:00 04:00 Temp 97.7 97.7 Pulse 67 66 Resp 14 14 B/P 121/77 127/88 Pulse Ox 99 99 99 O2 Delivery Ventilator Ventilator Mechanical Ventilator Ventilator 06/29/16 06/29/16 06/29/16 06/29/16 05:00 05:06 05:45 06:00 Pulse 66 64 Resp 14 14 14 B/P 116/75 133/80 Pulse Ox 99 99 99 O2 Delivery Ventilator Ventilator Ventilator Ventilator 06/29/16 06/29/16 06/29/16 06/29/16 07:00 07:00 07:15 07:45 Temp 97.8 97.8 97.8 97.8 Pulse 66 66 Resp 14 14 B/P 127/79 127/79 Pulse Ox 98 98 99 O2 Delivery Ventilator Ventilator Ventilator Mechanical Ventilator 06/29/16 06/29/16 06/29/16 06/29/16 08:00 09:00 11:00 11:19 Temp 97.4 97.4 Pulse 73 66 63 Resp 14 14 14 14 B/P 128/79 112/68 118/70 Pulse Ox 98 98 99 98 O2 Delivery Ventilator Ventilator Ventilator Ventilator 06/29/16 06/29/16 06/29/16 06/29/16 11:49 11:50 11:53 12:00 Temp 97.4 97.4 Pulse 67 Resp 14 14 B/P 128/81 Pulse Ox 97 97 97 O2 Delivery Ventilator Ventilator Mechanical Ventilator Intake and Output 06/28/16 06/28/16 06/29/16 15:00 23:00 07:00 Intake Total 540 ml 1415.4 ml Output Total 925 ml 405 ml Balance -385 ml 1010.4 ml INGRID HERNANDEZ MD Jun 29, 2016 12:32
--- NOTE | 2016-06-29 12:37 | PDOC ---
PULMONARY PROGRESS NOTES Vitals Vital Signs Date Time Temp Pulse Resp B/P Pulse Ox O2 Delivery O2 Flow Rate FiO2 06/29/16 12:00 Mechanical Ventilator 06/29/16 11:53 97.4 67 14 128/81 97 97.4 Lungs: Clear Labs Laboratory Tests Test 06/28/16 11:39 06/28/16 12:02 06/28/16 13:53 06/29/16 05:30 White Blood Count 7.0x10^3/uL (4.0-11.0) 4.6x10^3/uL (4.0-11.0) Red Blood Count 4.62x10^6/uL (4.30-5.70) 4.19x10^6/uL (4.30-5.70) Hemoglobin 14.4g/dL (13.0-17.5) 13.0g/dL (13.0-17.5) Hematocrit 43.8% (39.0-53.0) 39.1% (39.0-53.0) Mean Corpuscular Volume 95fL (79-100) 93fL (79-100) Mean Corpuscular Hemoglobin 31pg (25-35) 31pg (25-35) Mean Corpuscular Hemoglobin Concent 33g/dL (31-37) 33g/dL (31-37) Red Cell Distribution Width 17.1% (11.5-14.5) 16.9% (11.5-14.5) Platelet Count 118x10^3/uL (140-400) 87x10^3/uL (140-400) Neutrophils (%) (Auto) 59% (31-73) 85% (31-73) Lymphocytes (%) (Auto) 35% (24-48) 13% (24-48) Monocytes (%) (Auto) 6% (0-9) 2% (0-9) Eosinophils (%) (Auto) 0% (0-3) 0% (0-3) Basophils (%) (Auto) 1% (0-3) 0% (0-3) Neutrophils # (Auto) 4.2x10^3uL (1.8-7.7) 3.9x10^3uL (1.8-7.7) Lymphocytes # (Auto) 2.4x10^3/uL (1.0-4.8) 0.6x10^3/uL (1.0-4.8) Monocytes # (Auto) 0.4x10^3/uL (0.0-1.1) 0.1x10^3/uL (0.0-1.1) Eosinophils # (Auto) 0.0x10^3/uL (0.0-0.7) 0.0x10^3/uL (0.0-0.7) Basophils # (Auto) 0.0x10^3/uL (0.0-0.2) 0.0x10^3/uL (0.0-0.2) Sodium Level 137mmol/L (136-145) Potassium Level 3.9mmol/L (3.5-5.1) Chloride Level 97mmol/L (98-107) Carbon Dioxide Level 22mmol/L (21-32) Anion Gap 18 (6-14) Blood Urea Nitrogen 7mg/dL (8-26) Creatinine 0.8mg/dL (0.7-1.3) Estimated GFR (Cockcroft-Gault) 102.3 BUN/Creatinine Ratio 9 (6-20) Glucose Level 127mg/dL (70-99) Calcium Level 9.3mg/dL (8.5-10.1) Total Bilirubin 0.8mg/dL (0.2-1.0) Aspartate Amino Transf (AST/SGOT) 67U/L (15-37) Alanine Aminotransferase (ALT/SGPT) 29U/L (16-63) Alkaline Phosphatase 80U/L (46-116) Total Protein 8.8g/dL (6.4-8.2) Albumin 4.1g/dL (3.4-5.0) Albumin/Globulin Ratio 0.9 (1.0-1.7) Urine Collection Type U cath Urine Color Yellow Urine Clarity Cloudy Urine pH 6.0 Urine Specific [place] 1.020 Urine Protein >=300mg/dL (NEG-TRACE) Urine Glucose (UA) Negativemg/dL (NEG) Urine Ketones (Stick) Tracemg/dL (NEG) Urine Blood Small (NEG) Urine Nitrite Negative (NEG) Urine Bilirubin Negative (NEG) Urine Urobilinogen Dipstick 1.0mg/dL (0.2 mg/dL) Urine Leukocyte Esterase Negative (NEG) Urine RBC 1-2/HPF (0-2) Urine WBC 0/HPF (0-4) Urine Squamous Epithelial Cells None/LPF Urine Bacteria 0/HPF (0-FEW) O2 Saturation 98% (92-99) Arterial Blood pH 7.40 (7.35-7.45) Arterial Blood pCO2 at Patient Temp 41mmHg (35-46) Arterial Blood pO2 at Patient Temp 137mmHg (75-108) Arterial Blood HCO3 25mmol/L (21-28) Arterial Blood Base Excess 0mmol/L (-3-3) FiO2 50 Test 06/29/16 05:34 06/29/16 10:30 Sodium Level 137mmol/L (136-145) Potassium Level 3.9mmol/L (3.5-5.1) Chloride Level 100mmol/L (98-107) Carbon Dioxide Level 24mmol/L (21-32) Anion Gap 13 (6-14) Blood Urea Nitrogen 10mg/dL (8-26) Creatinine 0.8mg/dL (0.7-1.3) Estimated GFR (Cockcroft-Gault) 102.3 Glucose Level 166mg/dL (70-99) Calcium Level 8.6mg/dL (8.5-10.1) O2 Saturation 97% (92-99) Arterial Blood pH 7.42 (7.35-7.45) Arterial Blood pCO2 at Patient Temp 40mmHg (35-46) Arterial Blood pO2 at Patient Temp 99mmHg (75-108) Arterial Blood HCO3 25mmol/L (21-28) Arterial Blood Base Excess 0mmol/L (-3-3) FiO2 40 Laboratory Tests Test 06/28/16 13:53 06/29/16 05:30 06/29/16 05:34 06/29/16 10:30 O2 Saturation 98% (92-99) 97% (92-99) Arterial Blood pH 7.40 (7.35-7.45) 7.42 (7.35-7.45) Arterial Blood pCO2 at Patient Temp 41mmHg (35-46) 40mmHg (35-46) Arterial Blood pO2 at Patient Temp 137mmHg (75-108) 99mmHg (75-108) Arterial Blood HCO3 25mmol/L (21-28) 25mmol/L (21-28) Arterial Blood Base Excess 0mmol/L (-3-3) 0mmol/L (-3-3) FiO2 50 40 White Blood Count 4.6x10^3/uL (4.0-11.0) Red Blood Count 4.19x10^6/uL (4.30-5.70) Hemoglobin 13.0g/dL (13.0-17.5) Hematocrit 39.1% (39.0-53.0) Mean Corpuscular Volume 93fL (79-100) Mean Corpuscular Hemoglobin 31pg (25-35) Mean Corpuscular Hemoglobin Concent 33g/dL (31-37) Red Cell Distribution Width 16.9% (11.5-14.5) Platelet Count 87x10^3/uL (140-400) Neutrophils (%) (Auto) 85% (31-73) Lymphocytes (%) (Auto) 13% (24-48) Monocytes (%) (Auto) 2% (0-9) Eosinophils (%) (Auto) 0% (0-3) Basophils (%) (Auto) 0% (0-3) Neutrophils # (Auto) 3.9x10^3uL (1.8-7.7) Lymphocytes # (Auto) 0.6x10^3/uL (1.0-4.8) Monocytes # (Auto) 0.1x10^3/uL (0.0-1.1) Eosinophils # (Auto) 0.0x10^3/uL (0.0-0.7) Basophils # (Auto) 0.0x10^3/uL (0.0-0.2) Sodium Level 137mmol/L (136-145) Potassium Level 3.9mmol/L (3.5-5.1) Chloride Level 100mmol/L (98-107) Carbon Dioxide Level 24mmol/L (21-32) Anion Gap 13 (6-14) Blood Urea Nitrogen 10mg/dL (8-26) Creatinine 0.8mg/dL (0.7-1.3) Estimated GFR (Cockcroft-Gault) 102.3 Glucose Level 166mg/dL (70-99) Calcium Level 8.6mg/dL (8.5-10.1) Medications Active Scripts Medications Dose Route/Sig Days Date Category Lisinopril 10 Mg Tablet 10 Mg PO DAILY 06/28/16 Reported Trazodone Hcl 50 Mg Tablet 1 Tab PO QHS 06/28/16 Reported Impression . [id number] acute resp failure sec to angioedema see orders SUZETTE WILKERSON MD Jun 29, 2016 12:37
[2016-06-29] MEDS: MULTIVIT INFUSN,ADULT 4,VIT K 10 ML, FOLIC ACID 1 MG, THIAMINE 100 MG in IV DEXTROSE 5 ... IV SCH (13:32)
[2016-06-29] MEDS: ENOXAPARIN 40 MG/0.4 ML DISP.SYRIN. SQ SCH (13:32)
[2016-06-29] MEDS ORDERED: HEPARIN PF for SUB-Q USE 5,000 UNIT/0.5 ML VIAL. SQ SCH (14:00)
[2016-06-30] VITALS (24 sets, daily range): BP systolic 96–164; BP diastolic 58–95
[2016-06-30] MEDS: PROPOFOL 100 ML IV PRN ×2 (03:38→05:26)
--- NOTE | 2016-06-30 04:07 | CONS ---
DATE OF CONSULTATION: 06/29/2016 ATTENDING PHYSICIAN: Dr. Saunders. REASON FOR CONSULTATION: The patient is seen in pulmonary consultation at the request of Dr. Saunders for respiratory failure, vent management. HISTORY OF PRESENT ILLNESS: The patient is a 50-year-old [place] male with a history of hypertension on lisinopril, presented with increasing shortness of breath. There was also a complaint of not being able to breathe and feels like there was blockage in his throat. The patient was intubated in the emergency department, was placed on mechanical ventilation. He is currently in the intensive care unit. Several attempts at placing an OG tube failed. I reviewed the procedure report, which indicates there was significant laryngeal edema present consistent with angioedema. PAST MEDICAL HISTORY: Hypertension, alcohol abuse according to his friend. PAST SURGICAL HISTORY: Unknown. FAMILY HISTORY: Unknown. ALLERGIES: LISINOPRIL CAUSING ANGIOEDEMA INDICATED ABOVE. CURRENT MEDICATIONS: List was reviewed. PHYSICAL EXAMINATION: VITAL SIGNS: Stable. O2 saturation was greater than 92%, currently on 40% FIO2. HEENT: Eyes, the sclerae were nonicteric. NECK: Jugular venous distention was not elevated. No lymphadenopathy. CHEST: Full expansion. LUNGS: Adequate airway flow, no wheezes. CARDIOVASCULAR: Regular rate and rhythm with S1, S2, no S3. ABDOMEN: Soft, nontender, nondistended. EXTREMITIES: No clubbing, cyanosis or edema. NEUROLOGIC: The patient was sedated. LABORATORY DATA: Reviewed. Chest x-ray was reviewed, no infiltrates. ABG was reviewed. Blood gas ABG: pH of 7.42, PaCO2 of 40, PaO2 of 90. IMPRESSION: 1. Acute respiratory failure secondary to angioedema. 2. Angioedema secondary to lisinopril. 3. Hypertension. 4. Alcohol abuse. PLAN: 1. Continue current support. The patient is not ready to be extubated. There is not much flow of air around the ET tube when the cuff was deflated. 2. Placement of OG tube failed on several attempts. We will await further diminution of the edema prior to trying to insert an OG tube. 3. Continue nutritional support with TPN. 4. Monitor blood pressure. 5. DVT and GI prophylaxis. 6. Continue Solu-Medrol. 7. Avoid DANTE inhibitors. 8. Alcohol withdrawal protocol per PCP. I do appreciate the privilege in sharing in the patient's care. Total cumulative critical care time of 40 minutes. SUZETTE WILKERSON MD DR: BRISA/jen JOB#: [id number] / [id number]
[2016-06-30] MEDS: methylPREDNISolone SOD SUCC PF 125 MG/2 ML VIAL. IV SCH ×3 (05:26→21:17)
[2016-06-30] MEDS: MIDAZOLAM PREMIX 100 ML IV PRN (05:27)
[2016-06-30] MEDS: FENTANYL STANDARD PCA 30 ML IV PRN (05:28)
[2016-06-30 06:48] LABS: CALCIUM 8.7 mg/dL (8.5-10.1); CREATININE 0.9 mg/dL (0.7-1.3); GFR 89.3; POTASSIUM 4.1 mmol/L (3.5-5.1)
[2016-06-30 06:50] LABS: BASO % 0 % (0-3); EOS % 0 % (0-3); HEMATOCRIT 39.1 % (39.0-53.0); HEMOGLOBIN 12.9 g/dL (13.0-17.5); LYMPH # 0.8 x10^3/uL (1.0-4.8); LYMPH % 10 % (24-48); MEAN CORPUSCULAR HEMOGLOBIN 31 pg (25-35); MEAN CORPUSCULAR HGB CONC 33 g/dL (31-37); MEAN CORPUSCULAR VOLUME 94 fL (79-100); MONO % 4 % (0-9); NEUT % 86 % (31-73); PLATELET COUNT 93 x10^3/uL (140-400); RED BLOOD COUNT 4.15 x10^6/uL (4.30-5.70); RED CELL DISTRIBUTION WIDTH 16.8 % (11.5-14.5); WHITE BLOOD COUNT 8.2 x10^3/uL (4.0-11.0)
[2016-06-30] MEDS: CHLORHEXIDINE 0.12% 15 ML MOUTHWASH. MM SCH (07:48)
[2016-06-30] MEDS: FAMOTIDINE 20 MG/2 ML VIAL IVP SCH ×2 (07:48→21:16)
[2016-06-30] MEDS: MULTIVIT INFUSN,ADULT 4,VIT K 10 ML, FOLIC ACID 1 MG, THIAMINE 100 MG in IV DEXTROSE 5 ... IV SCH (07:48)
[2016-06-30 07:55] LABS: HCO3 ABG 24 mmol/L (21-28); PCO2 ABG 36 mmHg (35-46); PH ABG 7.45 (7.35-7.45); PO2 ABG 100 mmHg (75-108); SAT O2 ABG 97 % (92-99)
--- NOTE | 2016-06-30 08:00 | RAD ---
Portable chest, 06/30/2016: History: Respiratory failure Comparison is made to a study from 06/28/2016. The ET tube tip lies well above the brenda. The heart size and pulmonary vascularity are within normal limits. There is minimal persistent atelectasis/infiltrate in the left base medially partially obscuring the descending thoracic aorta. The right lung is clear. There is no evidence of pleural fluid or pneumothorax. IMPRESSION: 1. The ET tube is in satisfactory position. 2. Minimal persistent left basilar atelectasis/infiltrate.
[2016-06-30 08:05] LABS: FIO2 ABG 40
[2016-06-30 09:37] LABS: PLT ESTIMATE DECREASED (ADEQUATE)
--- NOTE | 2016-06-30 09:53 | PDOC ---
PULMONARY PROGRESS NOTES Subjective Pt with no sign of distress Vitals Vital Signs Date Time Temp Pulse Resp B/P Pulse Ox O2 Delivery O2 Flow Rate FiO2 06/30/16 08:08 Mechanical Ventilator 06/30/16 08:00 79 14 101/61 100 06/30/16 07:00 97.5 97.5 Lungs: Clear Cardiovascular: S1, S2 Abdomen: Soft Neuro Exam: Alert Extremities: No Edema Skin: Warm Labs Laboratory Tests Test 06/28/16 11:39 06/28/16 12:02 06/28/16 13:53 06/28/16 20:20 White Blood Count 7.0x10^3/uL (4.0-11.0) Red Blood Count 4.62x10^6/uL (4.30-5.70) Hemoglobin 14.4g/dL (13.0-17.5) Hematocrit 43.8% (39.0-53.0) Mean Corpuscular Volume 95fL (79-100) Mean Corpuscular Hemoglobin 31pg (25-35) Mean Corpuscular Hemoglobin Concent 33g/dL (31-37) Red Cell Distribution Width 17.1% (11.5-14.5) Platelet Count 118x10^3/uL (140-400) Neutrophils (%) (Auto) 59% (31-73) Lymphocytes (%) (Auto) 35% (24-48) Monocytes (%) (Auto) 6% (0-9) Eosinophils (%) (Auto) 0% (0-3) Basophils (%) (Auto) 1% (0-3) Neutrophils # (Auto) 4.2x10^3uL (1.8-7.7) Lymphocytes # (Auto) 2.4x10^3/uL (1.0-4.8) Monocytes # (Auto) 0.4x10^3/uL (0.0-1.1) Eosinophils # (Auto) 0.0x10^3/uL (0.0-0.7) Basophils # (Auto) 0.0x10^3/uL (0.0-0.2) Sodium Level 137mmol/L (136-145) Potassium Level 3.9mmol/L (3.5-5.1) Chloride Level 97mmol/L (98-107) Carbon Dioxide Level 22mmol/L (21-32) Anion Gap 18 (6-14) Blood Urea Nitrogen 7mg/dL (8-26) Creatinine 0.8mg/dL (0.7-1.3) Estimated GFR (Cockcroft-Gault) 102.3 BUN/Creatinine Ratio 9 (6-20) Glucose Level 127mg/dL (70-99) Calcium Level 9.3mg/dL (8.5-10.1) Total Bilirubin 0.8mg/dL (0.2-1.0) Aspartate Amino Transf (AST/SGOT) 67U/L (15-37) Alanine Aminotransferase (ALT/SGPT) 29U/L (16-63) Alkaline Phosphatase 80U/L (46-116) Total Protein 8.8g/dL (6.4-8.2) Albumin 4.1g/dL (3.4-5.0) Albumin/Globulin Ratio 0.9 (1.0-1.7) Urine Collection Type U cath Urine Color Yellow Urine Clarity Cloudy Urine pH 6.0 Urine Specific [place] 1.020 Urine Protein >=300mg/dL (NEG-TRACE) Urine Glucose (UA) Negativemg/dL (NEG) Urine Ketones (Stick) Tracemg/dL (NEG) Urine Blood Small (NEG) Urine Nitrite Negative (NEG) Urine Bilirubin Negative (NEG) Urine Urobilinogen Dipstick 1.0mg/dL (0.2 mg/dL) Urine Leukocyte Esterase Negative (NEG) Urine RBC 1-2/HPF (0-2) Urine WBC 0/HPF (0-4) Urine Squamous Epithelial Cells None/LPF Urine Bacteria 0/HPF (0-FEW) O2 Saturation 98% (92-99) Arterial Blood pH 7.40 (7.35-7.45) Arterial Blood pCO2 at Patient Temp 41mmHg (35-46) Arterial Blood pO2 at Patient Temp 137mmHg (75-108) Arterial Blood HCO3 25mmol/L (21-28) Arterial Blood Base Excess 0mmol/L (-3-3) FiO2 50 Nasal Screen MRSA (PCR) Negative (Negative) Test 06/29/16 05:30 06/29/16 05:34 06/29/16 10:30 06/30/16 05:50 White Blood Count 4.6x10^3/uL (4.0-11.0) 8.2x10^3/uL (4.0-11.0) Red Blood Count 4.19x10^6/uL (4.30-5.70) 4.15x10^6/uL (4.30-5.70) Hemoglobin 13.0g/dL (13.0-17.5) 12.9g/dL (13.0-17.5) Hematocrit 39.1% (39.0-53.0) 39.1% (39.0-53.0) Mean Corpuscular Volume 93fL (79-100) 94fL (79-100) Mean Corpuscular Hemoglobin 31pg (25-35) 31pg (25-35) Mean Corpuscular Hemoglobin Concent 33g/dL (31-37) 33g/dL (31-37) Red Cell Distribution Width 16.9% (11.5-14.5) 16.8% (11.5-14.5) Platelet Count 87x10^3/uL (140-400) 93x10^3/uL (140-400) Neutrophils (%) (Auto) 85% (31-73) 86% (31-73) Lymphocytes (%) (Auto) 13% (24-48) 10% (24-48) Monocytes (%) (Auto) 2% (0-9) 4% (0-9) Eosinophils (%) (Auto) 0% (0-3) 0% (0-3) Basophils (%) (Auto) 0% (0-3) 0% (0-3) Neutrophils # (Auto) 3.9x10^3uL (1.8-7.7) 7.1x10^3uL (1.8-7.7) Lymphocytes # (Auto) 0.6x10^3/uL (1.0-4.8) 0.8x10^3/uL (1.0-4.8) Monocytes # (Auto) 0.1x10^3/uL (0.0-1.1) 0.3x10^3/uL (0.0-1.1) Eosinophils # (Auto) 0.0x10^3/uL (0.0-0.7) 0.0x10^3/uL (0.0-0.7) Basophils # (Auto) 0.0x10^3/uL (0.0-0.2) 0.0x10^3/uL (0.0-0.2) Sodium Level 137mmol/L (136-145) 138mmol/L (136-145) Potassium Level 3.9mmol/L (3.5-5.1) 4.1mmol/L (3.5-5.1) Chloride Level 100mmol/L (98-107) 103mmol/L (98-107) Carbon Dioxide Level 24mmol/L (21-32) 25mmol/L (21-32) Anion Gap 13 (6-14) 10 (6-14) Blood Urea Nitrogen 10mg/dL (8-26) 15mg/dL (8-26) Creatinine 0.8mg/dL (0.7-1.3) 0.9mg/dL (0.7-1.3) Estimated GFR (Cockcroft-Gault) 102.3 89.3 Glucose Level 166mg/dL (70-99) 168mg/dL (70-99) Calcium Level 8.6mg/dL (8.5-10.1) 8.7mg/dL (8.5-10.1) O2 Saturation 97% (92-99) Arterial Blood pH 7.42 (7.35-7.45) Arterial Blood pCO2 at Patient Temp 40mmHg (35-46) Arterial Blood pO2 at Patient Temp 99mmHg (75-108) Arterial Blood HCO3 25mmol/L (21-28) Arterial Blood Base Excess 0mmol/L (-3-3) FiO2 40 Test 06/30/16 07:45 O2 Saturation 97% (92-99) Arterial Blood pH 7.45 (7.35-7.45) Arterial Blood pCO2 at Patient Temp 36mmHg (35-46) Arterial Blood pO2 at Patient Temp 100mmHg (75-108) Arterial Blood HCO3 24mmol/L (21-28) Arterial Blood Base Excess 1mmol/L (-3-3) FiO2 40 Laboratory Tests Test 06/29/16 10:30 06/30/16 05:50 06/30/16 07:45 O2 Saturation 97% (92-99) 97% (92-99) Arterial Blood pH 7.42 (7.35-7.45) 7.45 (7.35-7.45) Arterial Blood pCO2 at Patient Temp 40mmHg (35-46) 36mmHg (35-46) Arterial Blood pO2 at Patient Temp 99mmHg (75-108) 100mmHg (75-108) Arterial Blood HCO3 25mmol/L (21-28) 24mmol/L (21-28) Arterial Blood Base Excess 0mmol/L (-3-3) 1mmol/L (-3-3) FiO2 40 40 White Blood Count 8.2x10^3/uL (4.0-11.0) Red Blood Count 4.15x10^6/uL (4.30-5.70) Hemoglobin 12.9g/dL (13.0-17.5) Hematocrit 39.1% (39.0-53.0) Mean Corpuscular Volume 94fL (79-100) Mean Corpuscular Hemoglobin 31pg (25-35) Mean Corpuscular Hemoglobin Concent 33g/dL (31-37) Red Cell Distribution Width 16.8% (11.5-14.5) Platelet Count 93x10^3/uL (140-400) Neutrophils (%) (Auto) 86% (31-73) Lymphocytes (%) (Auto) 10% (24-48) Monocytes (%) (Auto) 4% (0-9) Eosinophils (%) (Auto) 0% (0-3) Basophils (%) (Auto) 0% (0-3) Neutrophils # (Auto) 7.1x10^3uL (1.8-7.7) Lymphocytes # (Auto) 0.8x10^3/uL (1.0-4.8) Monocytes # (Auto) 0.3x10^3/uL (0.0-1.1) Eosinophils # (Auto) 0.0x10^3/uL (0.0-0.7) Basophils # (Auto) 0.0x10^3/uL (0.0-0.2) Sodium Level 138mmol/L (136-145) Potassium Level 4.1mmol/L (3.5-5.1) Chloride Level 103mmol/L (98-107) Carbon Dioxide Level 25mmol/L (21-32) Anion Gap 10 (6-14) Blood Urea Nitrogen 15mg/dL (8-26) Creatinine 0.9mg/dL (0.7-1.3) Estimated GFR (Cockcroft-Gault) 89.3 Glucose Level 168mg/dL (70-99) Calcium Level 8.7mg/dL (8.5-10.1) Medications Active Scripts Medications Dose Route/Sig Days Date Category Lisinopril 10 Mg Tablet 10 Mg PO DAILY 06/28/16 Reported Trazodone Hcl 50 Mg Tablet 1 Tab PO QHS 06/28/16 Reported Impression . 1. Acute respiratory failure secondary to angioedema. 2. Angioedema secondary to lisinopril. 3. Hypertension. 4. Alcohol abuse. Plan . 1. Deflated the cuff air flows around tube 2. OG if not extubated 3. Continue nutritional support with TPN. 4. Monitor blood pressure. 5. DVT and GI prophylaxis. 6. Continue Solu-Medrol. 7. Avoid DANTE inhibitors. 8. Alcohol withdrawal protocol per PCP. I dont think we will be able to perform a trial will need to extubate without trial sec to pt agitation off sedation SUZETTE WILKERSON MD Jun 30, 2016 09:53
--- NOTE | 2016-06-30 12:33 | PDOC ---
PROGRESS NOTES Chief Complaint Chief Complaint sob 1. Acute hypoxic respiratory failure, elective intubation to protect airway. 2. Angioedema, likely due to lisinopril. 3. Hypertension. 4. alcoholism plan: keep intubated, sedated for today given still very angioedema at throat ICU care sedated PULM CONsult cont solumedrol 125mg iv tid CXR daily PPN dvt, gi ppx try to wean tmr History of Present Illness History of Present Illness agitated overnight need sedation as per nurse, throat better swollen ,cannot insert OGT Vitals Vitals Vital Signs Date Time Temp Pulse Resp B/P Pulse Ox O2 Delivery O2 Flow Rate FiO2 06/30/16 12:00 115 22 155/88 100 Ventilator 06/30/16 11:03 97.6 97.6 06/30/16 10:40 10.0 Physical Exam Physical Exam intubated, sedated Heart: Regular rate, Normal S1, Normal S2 Lungs: Clear Abdomen: Normal bowel sounds, Soft Extremities: No clubbing, No cyanosis Labs LABS Laboratory Tests Test 06/30/16 05:50 06/30/16 07:45 White Blood Count 8.2x10^3/uL (4.0-11.0) Red Blood Count 4.15x10^6/uL (4.30-5.70) Hemoglobin 12.9g/dL (13.0-17.5) Hematocrit 39.1% (39.0-53.0) Mean Corpuscular Volume 94fL (79-100) Mean Corpuscular Hemoglobin 31pg (25-35) Mean Corpuscular Hemoglobin Concent 33g/dL (31-37) Red Cell Distribution Width 16.8% (11.5-14.5) Platelet Count 93x10^3/uL (140-400) Neutrophils (%) (Auto) 86% (31-73) Lymphocytes (%) (Auto) 10% (24-48) Monocytes (%) (Auto) 4% (0-9) Eosinophils (%) (Auto) 0% (0-3) Basophils (%) (Auto) 0% (0-3) Neutrophils # (Auto) 7.1x10^3uL (1.8-7.7) Lymphocytes # (Auto) 0.8x10^3/uL (1.0-4.8) Monocytes # (Auto) 0.3x10^3/uL (0.0-1.1) Eosinophils # (Auto) 0.0x10^3/uL (0.0-0.7) Basophils # (Auto) 0.0x10^3/uL (0.0-0.2) Segmented Neutrophils % 79% (35-66) Band Neutrophils % 4% (0-9) Lymphocytes % 16% (24-48) Monocytes % 1% (0-10) Platelet Estimate Decreased (ADEQUATE) Sodium Level 138mmol/L (136-145) Potassium Level 4.1mmol/L (3.5-5.1) Chloride Level 103mmol/L (98-107) Carbon Dioxide Level 25mmol/L (21-32) Anion Gap 10 (6-14) Blood Urea Nitrogen 15mg/dL (8-26) Creatinine 0.9mg/dL (0.7-1.3) Estimated GFR (Cockcroft-Gault) 89.3 Glucose Level 168mg/dL (70-99) Calcium Level 8.7mg/dL (8.5-10.1) O2 Saturation 97% (92-99) Arterial Blood pH 7.45 (7.35-7.45) Arterial Blood pCO2 at Patient Temp 36mmHg (35-46) Arterial Blood pO2 at Patient Temp 100mmHg (75-108) Arterial Blood HCO3 24mmol/L (21-28) Arterial Blood Base Excess 1mmol/L (-3-3) FiO2 40 Review of Systems Review of Systems no fever, chills, Assessment and Plan Assessmemt and Plan Problems Medical Problems: (1) Acute respiratory failure Status: Acute (2) Angioedema Status: Acute (3) Angioedema Status: Acute (4) Respiratory failure requiring intubation Status: Acute Problems: Comment Review of Relevant I have reviewed the following items kenji (where applicable) has been applied. Labs Laboratory Tests Test 06/28/16 13:53 06/28/16 20:20 06/29/16 05:30 06/29/16 05:34 O2 Saturation 98% (92-99) Arterial Blood pH 7.40 (7.35-7.45) Arterial Blood pCO2 at Patient Temp 41mmHg (35-46) Arterial Blood pO2 at Patient Temp 137mmHg (75-108) Arterial Blood HCO3 25mmol/L (21-28) Arterial Blood Base Excess 0mmol/L (-3-3) FiO2 50 Nasal Screen MRSA (PCR) Negative (Negative) White Blood Count 4.6x10^3/uL (4.0-11.0) Red Blood Count 4.19x10^6/uL (4.30-5.70) Hemoglobin 13.0g/dL (13.0-17.5) Hematocrit 39.1% (39.0-53.0) Mean Corpuscular Volume 93fL (79-100) Mean Corpuscular Hemoglobin 31pg (25-35) Mean Corpuscular Hemoglobin Concent 33g/dL (31-37) Red Cell Distribution Width 16.9% (11.5-14.5) Platelet Count 87x10^3/uL (140-400) Neutrophils (%) (Auto) 85% (31-73) Lymphocytes (%) (Auto) 13% (24-48) Monocytes (%) (Auto) 2% (0-9) Eosinophils (%) (Auto) 0% (0-3) Basophils (%) (Auto) 0% (0-3) Neutrophils # (Auto) 3.9x10^3uL (1.8-7.7) Lymphocytes # (Auto) 0.6x10^3/uL (1.0-4.8) Monocytes # (Auto) 0.1x10^3/uL (0.0-1.1) Eosinophils # (Auto) 0.0x10^3/uL (0.0-0.7) Basophils # (Auto) 0.0x10^3/uL (0.0-0.2) Sodium Level 137mmol/L (136-145) Potassium Level 3.9mmol/L (3.5-5.1) Chloride Level 100mmol/L (98-107) Carbon Dioxide Level 24mmol/L (21-32) Anion Gap 13 (6-14) Blood Urea Nitrogen 10mg/dL (8-26) Creatinine 0.8mg/dL (0.7-1.3) Estimated GFR (Cockcroft-Gault) 102.3 Glucose Level 166mg/dL (70-99) Calcium Level 8.6mg/dL (8.5-10.1) Test 06/29/16 10:30 06/30/16 05:50 06/30/16 07:45 O2 Saturation 97% (92-99) 97% (92-99) Arterial Blood pH 7.42 (7.35-7.45) 7.45 (7.35-7.45) Arterial Blood pCO2 at Patient Temp 40mmHg (35-46) 36mmHg (35-46) Arterial Blood pO2 at Patient Temp 99mmHg (75-108) 100mmHg (75-108) Arterial Blood HCO3 25mmol/L (21-28) 24mmol/L (21-28) Arterial Blood Base Excess 0mmol/L (-3-3) 1mmol/L (-3-3) FiO2 40 40 White Blood Count 8.2x10^3/uL (4.0-11.0) Red Blood Count 4.15x10^6/uL (4.30-5.70) Hemoglobin 12.9g/dL (13.0-17.5) Hematocrit 39.1% (39.0-53.0) Mean Corpuscular Volume 94fL (79-100) Mean Corpuscular Hemoglobin 31pg (25-35) Mean Corpuscular Hemoglobin Concent 33g/dL (31-37) Red Cell Distribution Width 16.8% (11.5-14.5) Platelet Count 93x10^3/uL (140-400) Neutrophils (%) (Auto) 86% (31-73) Lymphocytes (%) (Auto) 10% (24-48) Monocytes (%) (Auto) 4% (0-9) Eosinophils (%) (Auto) 0% (0-3) Basophils (%) (Auto) 0% (0-3) Neutrophils # (Auto) 7.1x10^3uL (1.8-7.7) Lymphocytes # (Auto) 0.8x10^3/uL (1.0-4.8) Monocytes # (Auto) 0.3x10^3/uL (0.0-1.1) Eosinophils # (Auto) 0.0x10^3/uL (0.0-0.7) Basophils # (Auto) 0.0x10^3/uL (0.0-0.2) Segmented Neutrophils % 79% (35-66) Band Neutrophils % 4% (0-9) Lymphocytes % 16% (24-48) Monocytes % 1% (0-10) Platelet Estimate Decreased (ADEQUATE) Sodium Level 138mmol/L (136-145) Potassium Level 4.1mmol/L (3.5-5.1) Chloride Level 103mmol/L (98-107) Carbon Dioxide Level 25mmol/L (21-32) Anion Gap 10 (6-14) Blood Urea Nitrogen 15mg/dL (8-26) Creatinine 0.9mg/dL (0.7-1.3) Estimated GFR (Cockcroft-Gault) 89.3 Glucose Level 168mg/dL (70-99) Calcium Level 8.7mg/dL (8.5-10.1) Laboratory Tests Test 06/30/16 05:50 06/30/16 07:45 White Blood Count 8.2x10^3/uL (4.0-11.0) Red Blood Count 4.15x10^6/uL (4.30-5.70) Hemoglobin 12.9g/dL (13.0-17.5) Hematocrit 39.1% (39.0-53.0) Mean Corpuscular Volume 94fL (79-100) Mean Corpuscular Hemoglobin 31pg (25-35) Mean Corpuscular Hemoglobin Concent 33g/dL (31-37) Red Cell Distribution Width 16.8% (11.5-14.5) Platelet Count 93x10^3/uL (140-400) Neutrophils (%) (Auto) 86% (31-73) Lymphocytes (%) (Auto) 10% (24-48) Monocytes (%) (Auto) 4% (0-9) Eosinophils (%) (Auto) 0% (0-3) Basophils (%) (Auto) 0% (0-3) Neutrophils # (Auto) 7.1x10^3uL (1.8-7.7) Lymphocytes # (Auto) 0.8x10^3/uL (1.0-4.8) Monocytes # (Auto) 0.3x10^3/uL (0.0-1.1) Eosinophils # (Auto) 0.0x10^3/uL (0.0-0.7) Basophils # (Auto) 0.0x10^3/uL (0.0-0.2) Segmented Neutrophils % 79% (35-66) Band Neutrophils % 4% (0-9) Lymphocytes % 16% (24-48) Monocytes % 1% (0-10) Platelet Estimate Decreased (ADEQUATE) Sodium Level 138mmol/L (136-145) Potassium Level 4.1mmol/L (3.5-5.1) Chloride Level 103mmol/L (98-107) Carbon Dioxide Level 25mmol/L (21-32) Anion Gap 10 (6-14) Blood Urea Nitrogen 15mg/dL (8-26) Creatinine 0.9mg/dL (0.7-1.3) Estimated GFR (Cockcroft-Gault) 89.3 Glucose Level 168mg/dL (70-99) Calcium Level 8.7mg/dL (8.5-10.1) O2 Saturation 97% (92-99) Arterial Blood pH 7.45 (7.35-7.45) Arterial Blood pCO2 at Patient Temp 36mmHg (35-46) Arterial Blood pO2 at Patient Temp 100mmHg (75-108) Arterial Blood HCO3 24mmol/L (21-28) Arterial Blood Base Excess 1mmol/L (-3-3) FiO2 40 Medications Current Medications Diazepam (Valium) 10 mg STK-MED ONCE .ROUTE ; Start 06/28/16 at 11:28; Stop 05/02 at 11:29; Status DC Epinephrine HCl (Adrenalin) 1 mg STK-MED ONCE .ROUTE ; Start 06/28/16 at 11:33; Stop 06/28/16 at 11:34; Status DC Midazolam HCl 5 mg 5 mg 1X ONCE IV Last administered on 06/28/16 11:58; Start 06/28/16 at 12:00; Stop 06/28/16 at 12:01; Status DC Propofol 50 ml @ As Directed STK-MED ONCE IV ; Start 06/28/16 at 11:58; Stop 05/02 at 11:59; Status DC Propofol 100 ml @ 0 mls/hr CONT PRN IV SEE I/O RECORD Last administered on 06/28 12:02; Start 06/28/16 at 12:00; Stop 06/28/16 at 16:39; Status DC Sodium Chloride 1,000 ml @ 1,000 mls/hr Q1H IV Last administered on 06/28/16 12:24; Start 06/28/16 at 12:02; Stop 06/28/16 at 13:01; Status DC Sodium Chloride 1,000 ml @ 100 mls/hr Q10H IV ; Start 06/28/16 at 12:02; Stop 06/28/16 at 22:01; Status DC Midazolam HCl 100 ml @ As Directed STK-MED ONCE IV ; Start 06/28/16 at 12:14; Stop 06/28/16 at 12:15; Status DC Midazolam HCl 100 ml @ 0 mls/hr CONT PRN IV SEE I/O RECORD Last administered on 06/28/16 12:25; Start 06/28/16 at 12:15; Stop 06/28/16 at 16:40; Status DC Propofol (Diprivan) 50 ml @ As Directed STK-MED ONCE IV ; Start 06/28/16 at 12: 24; Stop 06/28/16 at 12:25; Status DC Etomidate (Amidate) 20 mg STK-MED ONCE IV ; Start 06/28/16 at 12:52; Stop at 12:53; Status DC Succinylcholine Chloride 200 mg 200 mg STK-MED ONCE .ROUTE ; Start 06/28/16 at 12:52; Stop 06/28/16 at 12:53; Status DC Fentanyl Citrate 30 ml @ 0 mls/hr CONT PRN IV PROTOCOL Last administered on 05:28; Start 06/28/16 at 13:45 Propofol (Diprivan) 100 ml @ 0 mls/hr CONT PRN IV PER PROTOCOL Last administered on 06/30/16 05:26; Start 06/28/16 at 13:45 Chlorhexidine Gluconate (Peridex) 15 ml BID MM Last administered on 06/30/16 07:48; Start 06/28/16 at 21:00 Artificial Tears (Artificial Tears) 1 drop PRN Q1HR PRN OU DRY EYE Last administered on 06/29/16 13:37; Start 06/28/16 at 13:45 Famotidine 20 mg 20 mg BID IVP Last administered on 06/30/16 07:48; Start 05/02 at 21:00 Midazolam HCl (Versed 100mg/ 100ml Premix) 100 ml @ 0 mls/hr CONT PRN IV PER PROTOCOL Last administered on 06/30/16 05:27; Start 06/28/16 at 13:45 Haloperidol Lactate (Haldol) 5 mg PRN Q15MIN PRN IVP AGITATION, DELIRIUM Last administered on 06/28/16 14:00; Start 06/28/16 at 13:45 Docusate Sodium (Colace Solution) 100 mg BID NG ; Start 06/28/16 at 21:00; Stop 06/29/16 at 12:32; Status DC Bisacodyl (Dulcolax Supp) 10 mg PRN DAILY PRN [place] CONSTIPATION; Start 06/28/16 at 13:45 Methylprednisolone Sodium Succinate 125 mg 125 mg Q8HRS IV Last administered on 06/30/16 05:26; Start 06/28/16 at 14:00 Amino Acids/ Glycerin/ Electrolytes (Procalamine) 1,000 ml @ 80 mls/hr [id number] IV Last administered on 06/29/16 23:41; Start 06/28/16 at 17:00 Acetaminophen (Tylenol) 325 mg PRN Q6HRS PRN PO MILD PAIN / TEMP; Start at 16:45 Hydralazine HCl (Apresoline) 10 mg PRN Q4HRS PRN IVP ELEVATED BP, SEE COMMENTS ; Start 06/28/16 at 16:45 Ondansetron HCl (Zofran) 4 mg PRN Q8HRS PRN IV NAUSEA/VOMITING; Start 06/28/16 at 16:45 Albuterol Sulfate (Ventolin Neb Soln) 2.5 mg PRN Q4HRS PRN NEB SHORTNESS OF BREATH; Start 06/28/16 at 16:45 Enoxaparin Sodium (Lovenox 40mg Syringe) 40 mg Q24H SQ Last administered on 13:32; Start 06/29/16 at 13:00 Hydralazine HCl (Apresoline) 10 mg PRN Q4HRS PRN IVP ELEVATED BP, SEE COMMENTS ; Start 06/29/16 at 12:30 Heparin Sodium (Porcine) 5000 unit 5,000 unit Q8HRS SQ ; Start 06/29/16 at 14:00 ; Status Cancel Multivitamins/ Minerals/Folic Acid/Thiamine HCl/ Dextrose/Sodium Chloride ( Infuvite Adult/ Iv D5% - 1/2 NS) 1,011.2 ml @ 100 mls/ hr DAILY IV Last administered on 06/30/16t 07:48; Start 06/29/16 at 13:30 Active Scripts Active Reported Lisinopril 10 Mg Tablet 10 Mg PO DAILY Trazodone Hcl 50 Mg Tablet 1 Tab PO QHS Vitals/I & O Vital Sign - Last 24 Hours 06/29/16 06/29/16 06/29/16 06/29/16 13:09 14:03 15:00 15:06 Temp 97.5 97.5 Pulse 65 65 65 Resp 14 14 14 B/P 135/85 140/86 136/87 Pulse Ox 98 98 98 98 O2 Delivery Ventilator Ventilator Ventilator Ventilator 06/29/16 06/29/16 06/29/16 06/29/16 16:00 16:00 17:00 17:15 Pulse 62 62 Resp 14 14 14 B/P 116/72 114/67 Pulse Ox 98 98 98 O2 Delivery Mechanical Ventilator Ventilator Ventilator Ventilator 06/29/16 06/29/16 06/29/16 06/29/16 17:45 18:00 19:00 20:00 Temp 97.4 97.4 Pulse 62 64 Resp 14 14 14 B/P 108/64 108/63 Pulse Ox 99 99 99 O2 Delivery Ventilator Ventilator Ventilator 06/29/16 06/29/16 06/29/16 06/29/16 20:00 20:23 21:00 22:00 Pulse 64 68 Resp 14 14 B/P 113/77 101/62 Pulse Ox 98 98 98 O2 Delivery Mechanical Ventilator Ventilator Ventilator Ventilator 06/29/16 06/29/16 06/29/16 06/30/16 22:50 23:00 23:40 00:00 Temp 97.5 97.5 Pulse 70 68 Resp 14 14 B/P 100/59 97/58 Pulse Ox 98 98 98 98 O2 Delivery Ventilator Ventilator Ventilator 06/30/16 06/30/16 06/30/16 06/30/16 00:00 01:00 01:14 02:00 Pulse 66 66 Resp 14 14 B/P 96/61 100/60 Pulse Ox 98 98 98 O2 Delivery Mechanical Ventilator Ventilator Ventilator Ventilator 06/30/16 06/30/16 06/30/16 06/30/16 03:00 03:52 04:00 04:00 Temp 97.3 97.3 Pulse 66 62 Resp 14 B/P 109/71 113/77 Pulse Ox 98 99 98 O2 Delivery Ventilator Ventilator Ventilator Mechanical Ventilator 06/30/16 06/30/16 06/30/16 06/30/16 05:00 06:00 07:00 07:45 Temp 97.5 97.5 Pulse 70 65 65 Resp 14 B/P 98/62 116/82 114/74 Pulse Ox 99 98 98 100 O2 Delivery Ventilator Ventilator Ventilator Ventilator 06/30/16 06/30/16 06/30/16 06/30/16 08:00 08:08 09:00 10:00 Pulse 79 99 95 Resp 16 B/P 101/61 109/67 139/83 Pulse Ox 100 99 100 O2 Delivery Ventilator Mechanical Ventilator Ventilator Ventilator 06/30/16 06/30/16 06/30/16 06/30/16 10:40 11:03 12:00 12:00 Temp 97.6 97.6 Pulse 104 115 Resp 20 22 B/P 145/81 155/88 Pulse Ox 100 100 O2 Delivery Aerosol Mask cool mist mask Mask Ventilator O2 Flow Rate 10.0 Intake and Output 06/29/16 06/29/16 06/30/16 15:00 23:00 07:00 Intake Total 1602.28 ml 1165.35 ml Output Total 610 ml 685 ml 800 ml Balance -610 ml 917.28 ml 365.35 ml INGRID HERNANDEZ MD Jun 30, 2016 12:33
[2016-06-30] MEDS: ENOXAPARIN 40 MG/0.4 ML DISP.SYRIN. SQ SCH (12:56)
[2016-06-30] MEDS ORDERED: LORAZEPAM 2 MG/ML VIAL IV PRN ×3 (13:30→17:00)
[2016-06-30] MEDS: AA 3%/ELECTROLYTE-TPN SOLN/GLY 1,000 ML IV SCH (18:28)
[2016-06-30] MEDS: LORAZEPAM 2 MG/ML VIAL IV PRN ×2 (21:17→23:56)
[2016-06-30] MEDS: HALOPERIDOL LACT 5 MG/ML VIAL. IVP PRN (23:56)
[2016-07-01] VITALS (18 sets, daily range): BP systolic 139–180; BP diastolic 78–111
[2016-07-01] MEDS: HALOPERIDOL LACT 5 MG/ML VIAL. IVP PRN ×2 (05:27→12:30)
[2016-07-01] MEDS: methylPREDNISolone SOD SUCC PF 125 MG/2 ML VIAL. IV SCH (05:27)
[2016-07-01] MEDS: LORAZEPAM 2 MG/ML VIAL IV PRN ×2 (05:28→22:06)
[2016-07-01 06:53] LABS: BASO % 0 % (0-3); EOS % 0 % (0-3); HEMATOCRIT 40.6 % (39.0-53.0); HEMOGLOBIN 13.4 g/dL (13.0-17.5); LYMPH # 0.6 x10^3/uL (1.0-4.8); LYMPH % 6 % (24-48); MEAN CORPUSCULAR HEMOGLOBIN 31 pg (25-35); MEAN CORPUSCULAR HGB CONC 33 g/dL (31-37); MEAN CORPUSCULAR VOLUME 94 fL (79-100); MONO % 5 % (0-9); NEUT % 89 % (31-73); PLATELET COUNT 97 x10^3/uL (140-400); RED BLOOD COUNT 4.34 x10^6/uL (4.30-5.70); RED CELL DISTRIBUTION WIDTH 17.1 % (11.5-14.5); WHITE BLOOD COUNT 10.5 x10^3/uL (4.0-11.0)
[2016-07-01 07:11] LABS: CALCIUM 8.8 mg/dL (8.5-10.1); CREATININE 0.9 mg/dL (0.7-1.3); GFR 89.3; POTASSIUM 3.6 mmol/L (3.5-5.1)
[2016-07-01] MEDS: AA 3%/ELECTROLYTE-TPN SOLN/GLY 1,000 ML IV SCH ×2 (08:34→22:07)
[2016-07-01] MEDS: MULTIVIT INFUSN,ADULT 4,VIT K 10 ML, FOLIC ACID 1 MG, THIAMINE 100 MG in IV DEXTROSE 5 ... IV SCH (08:34)
[2016-07-01] MEDS: FAMOTIDINE 20 MG/2 ML VIAL IVP SCH ×2 (08:34→22:06)
--- NOTE | 2016-07-01 08:40 | RAD ---
Portable chest, 07/01/2016: History: Infiltrates Comparison is made to yesterday's study. The patient is rotated to the left. The ET tube has been removed. The heart is at the upper limits of normal in size. The pulmonary vascularity is normal. No definite pulmonary infiltrates are seen. There is no evidence of pleural fluid. IMPRESSION: No acute cardiopulmonary abnormality is detected.
[2016-07-01] MEDS: AMLODIPINE BESYLATE 10 MG TABLET PO SCH (11:00)
[2016-07-01] MEDS ORDERED: BENZOCAINE/MENTHOL LOZENGE. PO PRN (11:15)
--- NOTE | 2016-07-01 11:39 | PDOC ---
PULMONARY PROGRESS NOTES Subjective Pt with no sign of distress confused Vitals Vital Signs Date Time Temp Pulse Resp B/P Pulse Ox O2 Delivery O2 Flow Rate FiO2 07/01/16 11:23 97.8 94 24 172/101 98 Room Air 97.8 06/30/16 16:00 2.0 Lungs: Clear Cardiovascular: S1, S2 Abdomen: Soft Neuro Exam: Alert Extremities: No Edema Skin: Warm Labs Laboratory Tests Test 06/30/16 05:50 06/30/16 07:45 07/01/16 06:24 White Blood Count 8.2x10^3/uL (4.0-11.0) 10.5x10^3/uL (4.0-11.0) Red Blood Count 4.15x10^6/uL (4.30-5.70) 4.34x10^6/uL (4.30-5.70) Hemoglobin 12.9g/dL (13.0-17.5) 13.4g/dL (13.0-17.5) Hematocrit 39.1% (39.0-53.0) 40.6% (39.0-53.0) Mean Corpuscular Volume 94fL (79-100) 94fL (79-100) Mean Corpuscular Hemoglobin 31pg (25-35) 31pg (25-35) Mean Corpuscular Hemoglobin Concent 33g/dL (31-37) 33g/dL (31-37) Red Cell Distribution Width 16.8% (11.5-14.5) 17.1% (11.5-14.5) Platelet Count 93x10^3/uL (140-400) 97x10^3/uL (140-400) Neutrophils (%) (Auto) 86% (31-73) 89% (31-73) Lymphocytes (%) (Auto) 10% (24-48) 6% (24-48) Monocytes (%) (Auto) 4% (0-9) 5% (0-9) Eosinophils (%) (Auto) 0% (0-3) 0% (0-3) Basophils (%) (Auto) 0% (0-3) 0% (0-3) Neutrophils # (Auto) 7.1x10^3uL (1.8-7.7) 9.4x10^3uL (1.8-7.7) Lymphocytes # (Auto) 0.8x10^3/uL (1.0-4.8) 0.6x10^3/uL (1.0-4.8) Monocytes # (Auto) 0.3x10^3/uL (0.0-1.1) 0.6x10^3/uL (0.0-1.1) Eosinophils # (Auto) 0.0x10^3/uL (0.0-0.7) 0.0x10^3/uL (0.0-0.7) Basophils # (Auto) 0.0x10^3/uL (0.0-0.2) 0.0x10^3/uL (0.0-0.2) Segmented Neutrophils % 79% (35-66) Band Neutrophils % 4% (0-9) Lymphocytes % 16% (24-48) Monocytes % 1% (0-10) Platelet Estimate Decreased (ADEQUATE) Sodium Level 138mmol/L (136-145) 140mmol/L (136-145) Potassium Level 4.1mmol/L (3.5-5.1) 3.6mmol/L (3.5-5.1) Chloride Level 103mmol/L (98-107) 104mmol/L (98-107) Carbon Dioxide Level 25mmol/L (21-32) 25mmol/L (21-32) Anion Gap 10 (6-14) 11 (6-14) Blood Urea Nitrogen 15mg/dL (8-26) 19mg/dL (8-26) Creatinine 0.9mg/dL (0.7-1.3) 0.9mg/dL (0.7-1.3) Estimated GFR (Cockcroft-Gault) 89.3 89.3 Glucose Level 168mg/dL (70-99) 161mg/dL (70-99) Calcium Level 8.7mg/dL (8.5-10.1) 8.8mg/dL (8.5-10.1) O2 Saturation 97% (92-99) Arterial Blood pH 7.45 (7.35-7.45) Arterial Blood pCO2 at Patient Temp 36mmHg (35-46) Arterial Blood pO2 at Patient Temp 100mmHg (75-108) Arterial Blood HCO3 24mmol/L (21-28) Arterial Blood Base Excess 1mmol/L (-3-3) FiO2 40 Laboratory Tests Test 07/01/16 06:24 White Blood Count 10.5x10^3/uL (4.0-11.0) Red Blood Count 4.34x10^6/uL (4.30-5.70) Hemoglobin 13.4g/dL (13.0-17.5) Hematocrit 40.6% (39.0-53.0) Mean Corpuscular Volume 94fL (79-100) Mean Corpuscular Hemoglobin 31pg (25-35) Mean Corpuscular Hemoglobin Concent 33g/dL (31-37) Red Cell Distribution Width 17.1% (11.5-14.5) Platelet Count 97x10^3/uL (140-400) Neutrophils (%) (Auto) 89% (31-73) Lymphocytes (%) (Auto) 6% (24-48) Monocytes (%) (Auto) 5% (0-9) Eosinophils (%) (Auto) 0% (0-3) Basophils (%) (Auto) 0% (0-3) Neutrophils # (Auto) 9.4x10^3uL (1.8-7.7) Lymphocytes # (Auto) 0.6x10^3/uL (1.0-4.8) Monocytes # (Auto) 0.6x10^3/uL (0.0-1.1) Eosinophils # (Auto) 0.0x10^3/uL (0.0-0.7) Basophils # (Auto) 0.0x10^3/uL (0.0-0.2) Sodium Level 140mmol/L (136-145) Potassium Level 3.6mmol/L (3.5-5.1) Chloride Level 104mmol/L (98-107) Carbon Dioxide Level 25mmol/L (21-32) Anion Gap 11 (6-14) Blood Urea Nitrogen 19mg/dL (8-26) Creatinine 0.9mg/dL (0.7-1.3) Estimated GFR (Cockcroft-Gault) 89.3 Glucose Level 161mg/dL (70-99) Calcium Level 8.8mg/dL (8.5-10.1) Medications Active Scripts Medications Dose Route/Sig Days Date Category Lisinopril 10 Mg Tablet 10 Mg PO DAILY 06/28/16 Reported Trazodone Hcl 50 Mg Tablet 1 Tab PO QHS 06/28/16 Reported Impression . 1. Acute respiratory failure secondary to angioedema. 2. Angioedema secondary to lisinopril. 3. Hypertension. 4. Alcohol abuse. Plan . pt extubated yesterday i will s/o call if needed thanks SUZETTE WILKERSON MD Jul 01, 2016 11:39
--- NOTE | 2016-07-01 12:47 | PDOC ---
PROGRESS NOTES Chief Complaint Chief Complaint sob 1. Acute hypoxic respiratory failure, elective intubation to protect airway. 2. Angioedema, likely due to lisinopril. 3. Hypertension. 4. alcoholism plan: extubated on 06/30 PULM CONsulted cont solumedrol 125mg iv decrease to bid waiting for swallow eval, if pass , can take po pills, add amlodipine for HTN PPN dvt, gi ppx ok to transfer out of ICU History of Present Illness History of Present Illness extubated on 06/30 afternoon was agitated yesterday, mild confusion, today better coughing up a little bit blood sputum, no severe cough or sob waiting for swallow eval Vitals Vitals Vital Signs Date Time Temp Pulse Resp B/P Pulse Ox O2 Delivery O2 Flow Rate FiO2 07/01/16 11:57 90 23 165/100 97 Room Air 07/01/16 11:23 97.8 97.8 06/30/16 16:00 2.0 Physical Exam Heart: Regular rate, Normal S1, Normal S2 Lungs: Clear Abdomen: Normal bowel sounds, Soft Extremities: No clubbing, No cyanosis Labs LABS Laboratory Tests Test 07/01/16 06:24 White Blood Count 10.5x10^3/uL (4.0-11.0) Red Blood Count 4.34x10^6/uL (4.30-5.70) Hemoglobin 13.4g/dL (13.0-17.5) Hematocrit 40.6% (39.0-53.0) Mean Corpuscular Volume 94fL (79-100) Mean Corpuscular Hemoglobin 31pg (25-35) Mean Corpuscular Hemoglobin Concent 33g/dL (31-37) Red Cell Distribution Width 17.1% (11.5-14.5) Platelet Count 97x10^3/uL (140-400) Neutrophils (%) (Auto) 89% (31-73) Lymphocytes (%) (Auto) 6% (24-48) Monocytes (%) (Auto) 5% (0-9) Eosinophils (%) (Auto) 0% (0-3) Basophils (%) (Auto) 0% (0-3) Neutrophils # (Auto) 9.4x10^3uL (1.8-7.7) Lymphocytes # (Auto) 0.6x10^3/uL (1.0-4.8) Monocytes # (Auto) 0.6x10^3/uL (0.0-1.1) Eosinophils # (Auto) 0.0x10^3/uL (0.0-0.7) Basophils # (Auto) 0.0x10^3/uL (0.0-0.2) Sodium Level 140mmol/L (136-145) Potassium Level 3.6mmol/L (3.5-5.1) Chloride Level 104mmol/L (98-107) Carbon Dioxide Level 25mmol/L (21-32) Anion Gap 11 (6-14) Blood Urea Nitrogen 19mg/dL (8-26) Creatinine 0.9mg/dL (0.7-1.3) Estimated GFR (Cockcroft-Gault) 89.3 Glucose Level 161mg/dL (70-99) Calcium Level 8.8mg/dL (8.5-10.1) Review of Systems Review of Systems no fever, chills, sob or chest pain Assessment and Plan Assessmemt and Plan Problems Medical Problems: (1) Acute respiratory failure Status: Acute (2) Angioedema Status: Acute (3) Angioedema Status: Acute (4) Respiratory failure requiring intubation Status: Acute Problems: Comment Review of Relevant I have reviewed the following items kenji (where applicable) has been applied. Labs Laboratory Tests Test 06/30/16 05:50 06/30/16 07:45 07/01/16 06:24 White Blood Count 8.2x10^3/uL (4.0-11.0) 10.5x10^3/uL (4.0-11.0) Red Blood Count 4.15x10^6/uL (4.30-5.70) 4.34x10^6/uL (4.30-5.70) Hemoglobin 12.9g/dL (13.0-17.5) 13.4g/dL (13.0-17.5) Hematocrit 39.1% (39.0-53.0) 40.6% (39.0-53.0) Mean Corpuscular Volume 94fL (79-100) 94fL (79-100) Mean Corpuscular Hemoglobin 31pg (25-35) 31pg (25-35) Mean Corpuscular Hemoglobin Concent 33g/dL (31-37) 33g/dL (31-37) Red Cell Distribution Width 16.8% (11.5-14.5) 17.1% (11.5-14.5) Platelet Count 93x10^3/uL (140-400) 97x10^3/uL (140-400) Neutrophils (%) (Auto) 86% (31-73) 89% (31-73) Lymphocytes (%) (Auto) 10% (24-48) 6% (24-48) Monocytes (%) (Auto) 4% (0-9) 5% (0-9) Eosinophils (%) (Auto) 0% (0-3) 0% (0-3) Basophils (%) (Auto) 0% (0-3) 0% (0-3) Neutrophils # (Auto) 7.1x10^3uL (1.8-7.7) 9.4x10^3uL (1.8-7.7) Lymphocytes # (Auto) 0.8x10^3/uL (1.0-4.8) 0.6x10^3/uL (1.0-4.8) Monocytes # (Auto) 0.3x10^3/uL (0.0-1.1) 0.6x10^3/uL (0.0-1.1) Eosinophils # (Auto) 0.0x10^3/uL (0.0-0.7) 0.0x10^3/uL (0.0-0.7) Basophils # (Auto) 0.0x10^3/uL (0.0-0.2) 0.0x10^3/uL (0.0-0.2) Segmented Neutrophils % 79% (35-66) Band Neutrophils % 4% (0-9) Lymphocytes % 16% (24-48) Monocytes % 1% (0-10) Platelet Estimate Decreased (ADEQUATE) Sodium Level 138mmol/L (136-145) 140mmol/L (136-145) Potassium Level 4.1mmol/L (3.5-5.1) 3.6mmol/L (3.5-5.1) Chloride Level 103mmol/L (98-107) 104mmol/L (98-107) Carbon Dioxide Level 25mmol/L (21-32) 25mmol/L (21-32) Anion Gap 10 (6-14) 11 (6-14) Blood Urea Nitrogen 15mg/dL (8-26) 19mg/dL (8-26) Creatinine 0.9mg/dL (0.7-1.3) 0.9mg/dL (0.7-1.3) Estimated GFR (Cockcroft-Gault) 89.3 89.3 Glucose Level 168mg/dL (70-99) 161mg/dL (70-99) Calcium Level 8.7mg/dL (8.5-10.1) 8.8mg/dL (8.5-10.1) O2 Saturation 97% (92-99) Arterial Blood pH 7.45 (7.35-7.45) Arterial Blood pCO2 at Patient Temp 36mmHg (35-46) Arterial Blood pO2 at Patient Temp 100mmHg (75-108) Arterial Blood HCO3 24mmol/L (21-28) Arterial Blood Base Excess 1mmol/L (-3-3) FiO2 40 Laboratory Tests Test 07/01/16 06:24 White Blood Count 10.5x10^3/uL (4.0-11.0) Red Blood Count 4.34x10^6/uL (4.30-5.70) Hemoglobin 13.4g/dL (13.0-17.5) Hematocrit 40.6% (39.0-53.0) Mean Corpuscular Volume 94fL (79-100) Mean Corpuscular Hemoglobin 31pg (25-35) Mean Corpuscular Hemoglobin Concent 33g/dL (31-37) Red Cell Distribution Width 17.1% (11.5-14.5) Platelet Count 97x10^3/uL (140-400) Neutrophils (%) (Auto) 89% (31-73) Lymphocytes (%) (Auto) 6% (24-48) Monocytes (%) (Auto) 5% (0-9) Eosinophils (%) (Auto) 0% (0-3) Basophils (%) (Auto) 0% (0-3) Neutrophils # (Auto) 9.4x10^3uL (1.8-7.7) Lymphocytes # (Auto) 0.6x10^3/uL (1.0-4.8) Monocytes # (Auto) 0.6x10^3/uL (0.0-1.1) Eosinophils # (Auto) 0.0x10^3/uL (0.0-0.7) Basophils # (Auto) 0.0x10^3/uL (0.0-0.2) Sodium Level 140mmol/L (136-145) Potassium Level 3.6mmol/L (3.5-5.1) Chloride Level 104mmol/L (98-107) Carbon Dioxide Level 25mmol/L (21-32) Anion Gap 11 (6-14) Blood Urea Nitrogen 19mg/dL (8-26) Creatinine 0.9mg/dL (0.7-1.3) Estimated GFR (Cockcroft-Gault) 89.3 Glucose Level 161mg/dL (70-99) Calcium Level 8.8mg/dL (8.5-10.1) Medications Current Medications Diazepam (Valium) 10 mg STK-MED ONCE .ROUTE ; Start 06/28/16 at 11:28; Stop 05/02 at 11:29; Status DC Epinephrine HCl (Adrenalin) 1 mg STK-MED ONCE .ROUTE ; Start 06/28/16 at 11:33; Stop 06/28/16 at 11:34; Status DC Midazolam HCl 5 mg 5 mg 1X ONCE IV Last administered on 06/28/16 11:58; Start 06/28/16 at 12:00; Stop 06/28/16 at 12:01; Status DC Propofol 50 ml @ As Directed STK-MED ONCE IV ; Start 06/28/16 at 11:58; Stop 05/02 at 11:59; Status DC Propofol 100 ml @ 0 mls/hr CONT PRN IV SEE I/O RECORD Last administered on 06/28 12:02; Start 06/28/16 at 12:00; Stop 06/28/16 at 16:39; Status DC Sodium Chloride 1,000 ml @ 1,000 mls/hr Q1H IV Last administered on 06/28/16 12:24; Start 06/28/16 at 12:02; Stop 06/28/16 at 13:01; Status DC Sodium Chloride 1,000 ml @ 100 mls/hr Q10H IV ; Start 06/28/16 at 12:02; Stop 06/28/16 at 22:01; Status DC Midazolam HCl 100 ml @ As Directed STK-MED ONCE IV ; Start 06/28/16 at 12:14; Stop 06/28/16 at 12:15; Status DC Midazolam HCl 100 ml @ 0 mls/hr CONT PRN IV SEE I/O RECORD Last administered on 06/28/16 12:25; Start 06/28/16 at 12:15; Stop 06/28/16 at 16:40; Status DC Propofol (Diprivan) 50 ml @ As Directed STK-MED ONCE IV ; Start 06/28/16 at 12: 24; Stop 06/28/16 at 12:25; Status DC Etomidate (Amidate) 20 mg STK-MED ONCE IV ; Start 06/28/16 at 12:52; Stop at 12:53; Status DC Succinylcholine Chloride 200 mg 200 mg STK-MED ONCE .ROUTE ; Start 06/28/16 at 12:52; Stop 06/28/16 at 12:53; Status DC Fentanyl Citrate 30 ml @ 0 mls/hr CONT PRN IV PROTOCOL Last administered on 05:28; Start 06/28/16 at 13:45; Stop 06/30/16 at 17:50; Status DC Propofol (Diprivan) 100 ml @ 0 mls/hr CONT PRN IV PER PROTOCOL Last administered on 06/30/16 05:26; Start 06/28/16 at 13:45; Stop 06/30/16 at 17:50 ; Status DC Chlorhexidine Gluconate (Peridex) 15 ml BID MM Last administered on 06/30/16 07:48; Start 06/28/16 at 21:00; Stop 06/30/16 at 17:50; Status DC Artificial Tears (Artificial Tears) 1 drop PRN Q1HR PRN OU DRY EYE Last administered on 06/29/16 13:37; Start 06/28/16 at 13:45 Famotidine 20 mg 20 mg BID IVP Last administered on 07/01/16 08:34; Start 05/02 at 21:00 Midazolam HCl (Versed 100mg/ 100ml Premix) 100 ml @ 0 mls/hr CONT PRN IV PER PROTOCOL Last administered on 06/30/16 05:27; Start 06/28/16 at 13:45; Stop at 17:50; Status DC Haloperidol Lactate (Haldol) 5 mg PRN Q15MIN PRN IVP AGITATION, DELIRIUM Last administered on 07/01/16 12:30; Start 06/28/16 at 13:45 Docusate Sodium (Colace Solution) 100 mg BID NG ; Start 06/28/16 at 21:00; Stop 06/29/16 at 12:32; Status DC Bisacodyl (Dulcolax Supp) 10 mg PRN DAILY PRN CA CONSTIPATION; Start 06/28/16 at 13:45 Methylprednisolone Sodium Succinate 125 mg 125 mg Q8HRS IV Last administered on 07/01/16 05:27; Start 06/28/16 at 14:00 Amino Acids/ Glycerin/ Electrolytes (Procalamine) 1,000 ml @ 80 mls/hr [id number] IV Last administered on 07/01/16 08:34; Start 06/28/16 at 17:00 Acetaminophen (Tylenol) 325 mg PRN Q6HRS PRN PO MILD PAIN / TEMP; Start at 16:45 Hydralazine HCl (Apresoline) 10 mg PRN Q4HRS PRN IVP ELEVATED BP, SEE COMMENTS ; Start 06/28/16 at 16:45; Stop 06/30/16 at 12:28; Status DC Ondansetron HCl (Zofran) 4 mg PRN Q8HRS PRN IV NAUSEA/VOMITING; Start 06/28/16 at 16:45 Albuterol Sulfate (Ventolin Neb Soln) 2.5 mg PRN Q4HRS PRN NEB SHORTNESS OF BREATH; Start 06/28/16 at 16:45 Enoxaparin Sodium (Lovenox 40mg Syringe) 40 mg Q24H SQ Last administered on 12:56; Start 06/29/16 at 13:00 Hydralazine HCl (Apresoline) 10 mg PRN Q4HRS PRN IVP ELEVATED BP, SEE COMMENTS ; Start 06/29/16 at 12:30 Heparin Sodium (Porcine) 5000 unit 5,000 unit Q8HRS SQ ; Start 06/29/16 at 14:00 ; Status Cancel Multivitamins/ Minerals/Folic Acid/Thiamine HCl/ Dextrose/Sodium Chloride ( Infuvite Adult/ Iv D5% - 1/2 NS) 1,011.2 ml @ 100 mls/ hr DAILY IV Last administered on 07/01/16 08:34; Start 06/29/16 at 13:30 Lorazepam (Ativan) 2 mg PRN Q4HRS PRN IV ANXIETY / AGITATION Last administered on 06/30/16 16:51; Start 06/30/16 at 13:30; Stop 06/30/16 at 16:56; Status DC Lorazepam (Ativan) 1 mg PRN Q4HRS PRN IV ANXIETY / AGITATION Last administered on 06/30/16 13:50; Start 06/30/16 at 13:30; Stop 06/30/16 at 16:56; Status DC Lorazepam (Ativan) 1 mg PRN Q1HR PRN IV ANXIETY / AGITATION; Start 06/30/16 at 17:00 Lorazepam (Ativan) 2 mg PRN Q1HR PRN IV ANXIETY / AGITATION Last administered on 07/01/16 05:28; Start 06/30/16 at 17:00 Amlodipine Besylate (Norvasc) 10 mg DAILY PO ; Start 07/01/16 at 11:00 Throat Lozenges (Cepacol Sore Throat Lozenge) 1 iris PRN Q2HRS PRN PO SORE THROAT Last administered on 07/01/16 11:24; Start 07/01/16 at 11:15 Active Scripts Active Reported Lisinopril 10 Mg Tablet 10 Mg PO DAILY Trazodone Hcl 50 Mg Tablet 1 Tab PO QHS Vitals/I & O Vital Sign - Last 24 Hours 06/30/16 06/30/16 06/30/16 06/30/16 13:00 14:00 15:00 16:00 Pulse 107 109 110 Resp 22 B/P 151/95 154/90 150/90 Pulse Ox 99 98 98 O2 Delivery cool mist mask cool mist mask cool mist mask Nasal Cannula O2 Flow Rate 2.0 06/30/16 06/30/16 06/30/16 06/30/16 16:00 17:12 17:57 18:00 Temp 97.9 97.9 Pulse 120 105 104 Resp 22 22 22 B/P 164/90 155/94 150/90 Pulse Ox 96 100 94 96 O2 Delivery Nasal Cannula cool mist mask Room Air Room Air O2 Flow Rate 2.0 06/30/16 06/30/16 06/30/16 06/30/16 19:00 20:00 20:00 21:00 Temp 98.5 98.5 Pulse 111 107 110 Resp B/P 163/93 153/91 145/83 Pulse Ox 95 95 94 O2 Delivery Room Air Room Air Room Air Room Air 06/30/16 06/30/16 06/30/16 07/01/16 22:00 23:00 23:59 00:01 Temp 98.2 98.2 Pulse 99 104 106 Resp B/P 147/88 144/74 157/94 Pulse Ox 95 93 94 O2 Delivery Room Air Room Air Room Air Room Air 07/01/16 07/01/16 07/01/16 07/01/16 01:00 02:00 03:00 04:00 Temp 98.5 98.5 Pulse 93 105 114 Resp B/P 159/96 148/96 170/92 Pulse Ox 92 95 93 O2 Delivery Room Air Room Air Room Air Room Air 07/01/16 07/01/16 07/01/16 07/01/16 04:02 05:02 06:00 07:42 Pulse 86 118 103 105 Resp B/P 164/88 170/111 171/91 178/108 Pulse Ox 96 94 93 95 O2 Delivery Room Air Room Air Room Air Room Air 07/01/16 07/01/16 07/01/16 07/01/16 08:00 08:00 08:05 09:21 Temp 98.1 98.1 Pulse 94 91 84 Resp B/P 180/100 179/110 160/96 Pulse Ox 94 96 92 O2 Delivery Room Air Room Air Room Air Room Air 07/01/16 07/01/16 11:23 11:57 Temp 97.8 97.8 Pulse 94 90 Resp B/P 172/101 165/100 Pulse Ox 98 97 O2 Delivery Room Air Room Air Intake and Output 06/30/16 06/30/16 07/01/16 15:00 23:00 07:00 Intake Total 1314 ml 0 ml Output Total 435 ml 345 ml 300 ml Balance -435 ml 969 ml -300 ml INGRID HERNANDEZ MD Jul 01, 2016 12:47
[2016-07-01] MEDS: ENOXAPARIN 40 MG/0.4 ML DISP.SYRIN. SQ SCH (13:00)
[2016-07-01] MEDS ORDERED: methylPREDNISolone SOD SUCC PF 125 MG/2 ML VIAL. IV SCH (21:00)
[2016-07-02 03:00] VITALS: BP 145/82
[2016-07-02 06:12] LABS: BASO % 0 % (0-3); EOS % 0 % (0-3); HEMATOCRIT 43.2 % (39.0-53.0); HEMOGLOBIN 14.5 g/dL (13.0-17.5); LYMPH # 0.6 x10^3/uL (1.0-4.8); LYMPH % 6 % (24-48); MEAN CORPUSCULAR HEMOGLOBIN 31 pg (25-35); MEAN CORPUSCULAR HGB CONC 34 g/dL (31-37); MEAN CORPUSCULAR VOLUME 93 fL (79-100); MONO % 6 % (0-9); NEUT % 88 % (31-73); PLATELET COUNT 102 x10^3/uL (140-400); RED BLOOD COUNT 4.64 x10^6/uL (4.30-5.70); RED CELL DISTRIBUTION WIDTH 17.1 % (11.5-14.5); WHITE BLOOD COUNT 9.1 x10^3/uL (4.0-11.0)
[2016-07-02 06:24] LABS: CREATININE 0.8 mg/dL (0.7-1.3); GFR 102.3
[2016-07-02 07:00] VITALS: BP 150/103
[2016-07-02] MEDS: AMLODIPINE BESYLATE 10 MG TABLET PO SCH (08:33)
--- NOTE | 2016-07-02 13:30 | PDOC ---
Provider Note Provider Note Pt left AMA Unable to see pt NO note written today MD DAMIR REICH CHERRIE Y MD Jul 02, 2016 13:29
== END 2016-07-02 11:30 | disposition left against medical advice (07) | DRG 208 ==
LOC: ER 11:16 → 1 WEST ICU 12:07 → 6 SOUTH 07-01 21:47
PROVIDERS: ADMIT Internal Medicine; ATTEND Internal Medicine
PROC: 5A1945Z Respiratory Ventilation, 24-96 Consecutive Hours (ICD-10-PCS; principal; 2016-06-28)
PROC: 0BH17EZ Insertion of Endotracheal Airway into Trachea, Via Natural or Artificial Opening (ICD-10-PCS; 2016-06-28)
DX: J96.01 Acute respiratory failure with hypoxia (principal); T78.3XXA Angioneurotic edema, initial encounter; F10.20 Alcohol dependence, uncomplicated; I10 Essential (primary) hypertension; T46.4X5A Adverse effect of angiotensin-converting-enzyme inhibitors, initial encounter; Z88.8 Allergy status to other drugs, medicaments and biological substances
CPT/HCPCS: 31500; 36415; 36600; 71010; 80048; 80053; 81001; 82805; 85007; 85027; 87641; 93005; 94002; 94003; 94250; 96365; 96375; J0360; J1630; J1650; J2060; J2250; J2704; J2930; J3010; J7030; S0028; 92610; 97116; 99291-25

== ENCOUNTER → 2018-08-29 | Outpatient (CLI) | payer OTHER ==
[~2018-08-29] MED LIST: LISI10TA2 PO; TRAZ-118 PO
--- NOTE | 2018-08-29 13:44 | RAD ---
MRI Lumbar Spine without contrast History: Chronic low back pain with worsening bilateral leg radiculopathy Technique: Multiplanar, multi sequential noncontrast MR imaging was performed of the lumbar spine. Comparison: None Findings: Lumbar vertebral body stature and AP alignment are maintained. There is moderate to severe degenerative disc disease L5-S1, mild disc desiccation L4-5. Conus terminates at L1. There is L5-S1 endplate edema greater on the right. There are posterior annular tears at L4-5 and L5-S1. There is small hemangioma of the anterior superior endplate of L1. L3-L4: Neural foramina and spinal canal are adequate. There is mild buckling of the ligamentum flavum and prominence of posterior epidural fat. L4-L5: There is minimal disc osteophyte complex, superimposed shallow protrusion in the left paracentral region. Spinal canal is overall adequate. There is very mild narrowing of the inferior left neural foramen, right neural foramen overall adequate. L5-S1: There is left laminectomy defect. There is right facet degenerative change. There is minimal disc osteophyte complex and bulge without significant displacement descending S1 nerve roots. Neural foramina are overall adequate. Impression: 1. There is no significant lumbar spinal stenosis or neural foramina compromise. There is degenerative disc disease at L5-S1. L5-S1 endplate edema is likely reactive/degenerative in etiology. There is left laminectomy defect at L5-S1. Electronically signed by: Trevor Winslow MD (08/29/2018 1:41 PM) [id number]
== END | disposition home or self-care (01) ==
LOC: MRI 14:38
PROVIDERS: ATTEND Internal Medicine
DX: M51.37 Other intervertebral disc degeneration, lumbosacral region (principal); M48.061 Spinal stenosis, lumbar region without neurogenic claudication; M25.78 Osteophyte, vertebrae; D18.09 Hemangioma of other sites
CPT/HCPCS: 72148